=== PATIENT | female | born 1950 | race Caucasian/White ===

== ENCOUNTER 2016-12-20 17:58 | Emergency (ER) | payer OTHER ==
--- NOTE | 2016-12-20 20:10 | EDM.PDOC ---
ED HPI GENERAL MEDICAL PROBLEM - General Chief Complaint: General Stated Complaint: FALL/HEADACHES Time Seen by Provider: 12/20/16 20:06 - History of Present Illness INITIAL COMMENTS - FREE TEXT/NARRATIVE: HISTORY AND PHYSICAL: History of present illness: Patient 66-year-old white female with history of DVT/pulmonary embolism was on Etelvina Vega was multiple other medical problems including type 2 diabetes who presents with concern of headache she had a fall on December 09 had a workup done that includes x-ray and venous Doppler of her left lower extremity they were reportedly unremarkable she concern now regarding the headache. She had no nausea no vomiting no visual disturbances denies any other complaints. Review of systems: As per history of present illness and below otherwise all systems reviewed and negative. Past medical history: As per history of present illness and as reviewed below otherwise noncontributory. Surgical history: As per history of present illness and as reviewed below otherwise noncontributory. Social history: No reported history of drug or alcohol abuse. Family history: As per history of present illness and as reviewed below otherwise noncontributory. Physical exam: HEENT: Atraumatic, normocephalic, pupils reactive, negative for conjunctival pallor or scleral icterus, mucous membranes moist, throat clear, neck supple, nontender, trachea midline. Lungs: Clear to auscultation, breath sounds equal bilaterally, chest nontender. Heart: S1S2, regular, negative for clicks, rubs, or JVD. Abdomen: Soft, nondistended, nontender. Negative for masses or hepatosplenomegaly. Negative for costovertebral tenderness. Pelvis: Stable nontender. Genitourinary: Deferred. Rectal: Deferred. Extremities: Atraumatic, negative for cords or calf pain. Neurovascular unremarkable. Neuro: Awake, alert, oriented. Cranial nerves II through XII unremarkable. Cerebellum unremarkable. Motor and sensory unremarkable throughout. Exam nonfocal. Diagnostics: CT brain Therapeutics: None Impression: #1 cephalgia #2 history of fall December 09 #3 history of DVT pulmonary embolism Definitive disposition and diagnosis as appropriate pending reevaluation and review of above. Knee Pain Score (Numeric/FACES): 6 - Related Data Allergies Allergy/AdvReac Type Severity Reaction Status Date / Time adhesive Allergy Intermediate Rash Verified 12/20/16 18:41 brimonidine tartrate Allergy Intermediate Rash Verified 12/20/16 18:41 [From Alphagan P] clindamycin Allergy Intermediate Swelling Verified 12/20/16 18:41 duloxetine HCl Allergy Intermediate Shortness Verified 12/20/16 18:41 [From Cymbalta] of Breath chlorhexidine Allergy Mild Other Verified 12/20/16 18:41 methylprednisolone Allergy Mild Other Verified 12/20/16 18:41 tramadol HCl [From Ultracet] Allergy Mild Rash Verified 12/20/16 18:41 valdecoxib [From Bextra] Allergy Mild Rash Verified 12/20/16 18:41 acetaminophen [From Roxicet] Allergy Rash Verified 12/20/16 18:41 bupropion HCl Allergy Hallucinati Verified 12/20/16 18:41 [From Wellbutrin] ons canagliflozin [From Invokana] Allergy Rash Verified 03/07/15 21:54 cefadroxil hydrate Allergy Rash Verified 03/07/15 21:54 [From Ultracef] ciprofloxacin Allergy Rash Verified 12/20/16 18:41 foot deodorant combination Allergy Burning Verified 12/20/16 18:41 no.1 [From Desenex] gold sodium thiomalate Allergy Swelling Verified 12/20/16 18:41 lorazepam Allergy Hallucinati Verified 12/20/16 18:41 ons miconazole nitrate Allergy Burning Verified 12/20/16 18:41 [From Desenex] oxycodone [Oxycodone] Allergy Rash Verified 12/20/16 18:41 oxycodone HCl [From Roxicet] Allergy Rash Verified 12/20/16 18:41 Penicillins Allergy Rash Verified 12/20/16 18:41 pineapple Allergy Anaphylactic Verified 12/20/16 18:41 Shock povidone-iodine Allergy Rash Verified 12/20/16 18:41 [From Betadine] raspberry Allergy Swollen Verified 12/20/16 18:41 Tongue soap [From Betadine] Allergy Rash Verified 12/20/16 18:41 Sulfa (Sulfonamide Allergy Swelling Verified 12/20/16 18:41 Antibiotics) undecylenic acid Allergy Burning Verified 12/20/16 18:41 [From Desenex] zinc undecylenate Allergy Burning Verified 12/20/16 18:41 [From Desenex] latex AdvReac Severe Anaphylactic Verified 12/20/16 18:41 Shock clonazepam [From Klonopin] AdvReac Intermediate Hallucinati Verified 12/20/16 18 :41 ons pregabalin [From Lyrica] AdvReac Intermediate Hallucinati Verified 12/20/16 18: 41 ons gentamicin sulfate AdvReac Mild intolerance Verified 12/20/16 18:41 [From Garamycin] 2-Hydroxypropyl Methacrylate Allergy Burning Uncoded 12/20/16 18:41 bio-mesh screen Allergy Cannot Uncoded 12/20/16 18:41 Remember chlorhexidine gluconate swab Allergy Rash Uncoded 12/20/16 18:41 stick Clavilon Swab Stick Allergy Burning Uncoded 12/20/16 18:41 ethyleneglycol Dimethacrylate Allergy Swelling Uncoded 12/20/16 18:41 evergreen pollen Allergy Anaphylactic Uncoded 12/20/16 18:41 Shock geomycin Allergy Swelling Uncoded 12/20/16 18:41 java crown Allergy Other Uncoded 12/20/16 18:41 Muslin Allergy Rash Uncoded 12/20/16 18:41 potassium Dicyanoaurate Allergy Edema Uncoded 12/20/16 18:41 Home Meds: Home Meds EPINEPHrine [Adrenalin Chloride] 0.3 mg IM ASDIRECTED PRN 05/27/13 [History] Omeprazole 40 mg PO DAILY 05/27/13 [History] Latanoprost [Xalatan] 1 drop EYERT BEDTIME 03/07/15 [History] Loperamide [Imodium AD] 2 mg PO ONETIME 03/07/15 [History] Apixaban [Eliquis] 5 mg PO 12/20/16 [History] Budesonide [Pulmicort] 0.5 mg IH BID 12/20/16 [History] Gabapentin [Neurontin] 100 mg PO BID 12/20/16 [History] Liraglutide [Victoza] 0.6 mg SUBCUT DAILY 12/20/16 [History] atorvaSTATin [Lipitor] 40 mg PO BEDTIME 12/20/16 [History] Past Medical History Cardiovascular History: Reports: Afib, Blood Clots/VTE/DVT, Heart Murmur Other Cardiovascular History: AF in 2014 Respiratory History: Reports: Asthma, PE, Other (See Below) Other Respiratory History: Bronchitis. pneumonia Gastrointestinal History: Reports: Bowel Obstruction, Chronic Diarrhea, GERD, Other (See Below) Other Gastrointestinal History: explore laparatomy 2008. abdominal hernia Genitourinary History: Reports: Other (See Below) Other Genitourinary History: bladder/kidney/urine infections HAT MODEL History: Reports: , Other (See Below) Other OB/BYN History: ovarian cyst. molar Musculoskeletal History: Reports: Arthritis, Back Pain, Chronic, Osteoarthritis Psychiatric History: Reports: Anxiety, Depression Endocrine/Metabolic History: Reports: Diabetes, Type II Other Hematologic History: clotting disorder Oncologic (Cancer) History: Reports: Basal Cell Carcinoma Dermatologic History: Reports: Eczema, Psoriasis, Other (See Below) Other Dermatologic History: dermatitis. oral lichen planus - Infectious Disease History Infectious Disease History: Reports: Shingles - Past Surgical History HEENT Surgical History: Reports: Other (See Below) Female Surgical History: Reports: Hysterectomy, Other (See Below) Musculoskeletal Surgical History: Reports: Arthroscopic Procedure, Knee Replacement Oncologic Surgical History: Reports: Biopsy of Breast Dermatological Surgical History: Reports: Skin Biopsy Social & Family History - Tobacco Use Smoking Status *Q: Never Smoker Used Tobacco, but Quit: No Second Hand Smoke Exposure: No - Caffeine Use Caffeine Use: Reports: None - Alcohol Use Days Per Week of Alcohol Use: 0 - Recreational Drug Use Recreational Drug Use: No ED ROS GENERAL - Review of Systems Review Of Systems: ROS reveals no pertinent complaints other than HPI. ED EXAM, GENERAL - Physical Exam Exam: See Below (See dictation) Course - Vital Signs Last Recorded V/S: Last Vital Signs Temp 36.7 C 12/20/16 19:16 Pulse 84 12/20/16 22:00 Resp 18 12/20/16 22:00 BP 141/71 H 12/20/16 22:00 Pulse Ox 98 12/20/16 22:00 - Orders/Labs/Meds Orders: Active Orders 24 hr Category Date Time Status Head wo Cont [CT] Stat Exams 12/20/16 20:10 Taken Departure - Departure Time of Disposition: 23:02 Disposition: Home, Self-Care 01 Condition: Good Clinical Impression: Cephalgia - Discharge Information Instructions: Head Injury, Adult Referrals: Олег Gilbert MD [Primary Care Provider] - Forms: ED Department Discharge Additional Instructions: The following information is given to patients seen in the emergency department who are being discharged to home. This information is to outline your options for follow-up care. We provide all patients seen in our emergency department with a follow-up referral. The need for follow-up, as well as the timing and circumstances, are variable depending upon the specifics of your emergency department visit. If you don't have a primary care physician on staff, we will provide you with a referral. We always advise you to contact your personal physician following an emergency department visit to inform them of the circumstance of the visit and for follow-up with them and/or the need for any referrals to a consulting specialist. The emergency department will also refer you to a specialist when appropriate. This referral assures that you have the opportunity for followup care with a specialist. All of these measure are taken in an effort to provide you with optimal care, which includes your followup. Under all circumstances we always encourage you to contact your private physician who remains a resource for coordinating your care. When calling for followup care, please make the office aware that this follow-up is from your recent emergency room visit. If for any reason you are refused follow-up, please contact the [facility] emergency department at and asked to speak to the emergency department charge nurse. Follow-up Primary medical doctor 1-2 days return as needed as discussed] - My Orders Last 24 Hours: My Active Orders 12/20/16 20:10 Head wo Cont [CT] Stat - Assessment/Plan Last 24 Hours: My Active Orders 12/20/16 20:10 Head wo Cont [CT] Stat
[2016-12-20 22:16] VITALS: BP 141/71
--- NOTE | 2016-12-21 10:46 | CT ---
EXAM DATE: 12/20/16 PATIENT'S AGE: 66 Patient: SUHAIL HARDY Facility: [place], [place] Site . Site : 1950 Study: CT Head [id number] 8:43:35 PM Ordering Physician: Efrain Jones Final Report: INDICATION: WORSENING HEADACHES AND BLURRY VISION SINCE FALL 12/09/16 TECHNIQUE: CT Head without i.v. contrast. CONTRAST: None COMPARISON: None FINDINGS: CSF spaces: The ventricles are normal for age. Brain: No evidence of mass, acute infarction or hemorrhage is seen. No mass- effect or midline shift is seen. Moderate diffuse-confluent, low density is present within the periventricular white matter, likely due to microvascular ischemic changes. Calvarium: The visualized paranasal sinuses are well aerated. The mastoid air cells are clear. The visualized orbits are grossly unremarkable. The calvarium is unremarkable in appearance with no fractures identified. IMPRESSION: 1. No evidence of acute infarction, intracranial hemorrhage, or mass-effect seen. Dictated by Maverick Zamarripa MD @ 12/20/2016 9:10:35 PM Dictated by: Maverick Zamarripa MD @ 12/20/2016 21:10:42 (Electronic Signature) Report Signed by Proxy. ERI
== END 2016-12-20 22:01 | disposition home or self-care (01) ==
LOC: MW.ED 17:58
DX: R51 Headache (principal); Z86.711 Personal history of pulmonary embolism; Z88.8 Allergy status to other drugs, medicaments and biological substances
CPT/HCPCS: 70450; 70450-26; 99284; 99284-25

== ENCOUNTER 2017-01-31 12:24 | Emergency (ER) | payer OTHER ==
[2017-01-31] MEDS ORDERED: Sodium Chloride 0.9% 1,000 ML IV ONE (13:13)
[2017-01-31] MEDS ORDERED: Ondansetron 4 MG/2 ML SDV IVPUSH ONE (13:13)
--- NOTE | 2017-01-31 13:47 | EDM.PDOC ---
ED HPI GENERAL MEDICAL PROBLEM - General Chief Complaint: Gastrointestinal Problem Stated Complaint: DIARRHEA Time Seen by Provider: 01/31/17 13:12 Source of Information: Reports: Patient History Limitations: Reports: No Limitations - History of Present Illness INITIAL COMMENTS - FREE TEXT/NARRATIVE: HISTORY AND PHYSICAL: History of present illness: Patient is a 66-year-old female who presents to the emergency room with complaints of nausea and diarrhea since . States she has had diarrhea every hour for the past 5 days. The first 2 days she used Imodium frequently and did not get any relief so she stopped taking this medication. She constantly feels nauseated but has not vomited. She is able to eat and drink appropriately but feels that it "comes right out". Has subjective fever and chills (not check temperature at home). Generalized abdominal pain, which she attributes to all the diarrhea. Denies any blood in her stools. In his any recent travel or antibiotic use. Denies any chest pain or shortness of breath. Patient is a diabetic and has been checking her blood sugars routinely. She has been running in the 80s. Her primary care provider is Dr. Gilbert at [facility]. Has received the [id number] influenza vaccine Review of systems: As per history of present illness and below otherwise all systems reviewed and negative. Past medical history: As per history of present illness and as reviewed below otherwise noncontributory. Surgical history: As per history of present illness and as reviewed below otherwise noncontributory. Social history: No reported history of drug or alcohol abuse. Family history: As per history of present illness and as reviewed below otherwise noncontributory. Physical exam: Gen.: Well-developed and well-nourished 66-year-old female. Alert and oriented. Appears nontoxic and in no acute distress. HEENT: Atraumatic, normocephalic, pupils reactive, negative for conjunctival pallor or scleral icterus, mucous membranes moist, unable to visualize the tympanic membrane on the left due to cerumen, right TM normal , throat clear, neck supple, nontender, trachea midline. Lungs: Clear to auscultation, breath sounds equal bilaterally, chest nontender. Heart: S1S2, regular rate and rhythm count overt murmurs Abdomen: Soft, obese, nondistended, mild tenderness to the left and right upper quadrant. Negative for masses or hepatosplenomegaly. Negative for costovertebral tenderness. Pelvis: Stable nontender. Genitourinary: Deferred. Rectal: Deferred. Extremities: Atraumatic, negative for cords or calf pain. Neurovascular unremarkable. Neuro: Awake, alert, oriented. Cranial nerves II through XII unremarkable. Cerebellum unremarkable. Motor and sensory unremarkable throughout. Exam nonfocal. Labs are normal at this time. The only study back for the stool is [place] factor which is negative. CT of the abdomen shows mild diverticulosis without diverticulitis. We'll give the patient a prescription for Zofran 4 mg ODT. She may take 1 tab every 8 hours as needed for nausea, dispense 15 -no refills. Encouraged her to follow-up with her primary care provider in the next couple days if she continues to have diarrhea. She voices understanding and denies any further questions. Diagnostics: CBC, CMP, UA, stool culture Therapeutics: IV fluid, Zofran Impression: Diarrhea Viral illness Plan: 1. Zofran 4 mg ODT has been prescribed for you. You may take 1 tablet every 8 hours as needed for nausea. Make sure you are getting plenty of fluids to prevent dehydration. 2. If you continue to have symptoms please follow-up with your primary care provider in the next 1-2 days. The ED as needed and as discussed. Definitive disposition and diagnosis as appropriate pending reevaluation and review of above. Duration: Day(s): Location: Reports: Abdomen right lower abd Pain Score (Numeric/FACES): 7 - Related Data Allergies Allergy/AdvReac Type Severity Reaction Status Date / Time adhesive Allergy Intermediate Rash Verified 01/31/17 13:03 brimonidine tartrate Allergy Intermediate Rash Verified 01/31/17 13:03 [From Alphagan P] clindamycin Allergy Intermediate Swelling Verified 01/31/17 13:03 duloxetine HCl Allergy Intermediate Shortness Verified 01/31/17 13:03 [From Cymbalta] of Breath chlorhexidine Allergy Mild Other Verified 01/31/17 13:03 methylprednisolone Allergy Mild Other Verified 01/31/17 13:03 tramadol HCl [From Ultracet] Allergy Mild Rash Verified 01/31/17 13:03 valdecoxib [From Bextra] Allergy Mild Rash Verified 01/31/17 13:03 acetaminophen [From Roxicet] Allergy Rash Verified 01/31/17 13:03 bupropion HCl Allergy Hallucinati Verified 01/31/17 13:03 [From Wellbutrin] ons canagliflozin [From Invokana] Allergy Rash Verified 01/31/17 13:03 cefadroxil hydrate Allergy Rash Verified 01/31/17 13:03 [From Ultracef] ciprofloxacin Allergy Rash Verified 01/31/17 13:03 foot deodorant combination Allergy Burning Verified 01/31/17 13:03 no.1 [From Desenex] gold sodium thiomalate Allergy Swelling Verified 01/31/17 13:03 lorazepam Allergy Hallucinati Verified 01/31/17 13:03 ons miconazole nitrate Allergy Burning Verified 01/31/17 13:03 [From Desenex] oxycodone [Oxycodone] Allergy Rash Verified 01/31/17 13:03 oxycodone HCl [From Roxicet] Allergy Rash Verified 01/31/17 13:03 Penicillins Allergy Rash Verified 01/31/17 13:03 pineapple Allergy Anaphylactic Verified 01/31/17 13:03 Shock povidone-iodine Allergy Rash Verified 01/31/17 13:03 [From Betadine] raspberry Allergy Swollen Verified 01/31/17 13:03 Tongue soap [From Betadine] Allergy Rash Verified 01/31/17 13:03 Sulfa (Sulfonamide Allergy Swelling Verified 01/31/17 13:03 Antibiotics) undecylenic acid Allergy Burning Verified 01/31/17 13:03 [From Desenex] zinc undecylenate Allergy Burning Verified 01/31/17 13:03 [From Desenex] latex AdvReac Severe Anaphylactic Verified 01/31/17 13:03 Shock clonazepam [From Klonopin] AdvReac Intermediate Hallucinati Verified 01/31/17 13 :03 ons pregabalin [From Lyrica] AdvReac Intermediate Hallucinati Verified 01/31/17 13: 03 ons gentamicin sulfate AdvReac Mild intolerance Verified 01/31/17 13:03 [From Garamycin] 2-Hydroxypropyl Methacrylate Allergy Burning Uncoded 01/31/17 13:03 bio-mesh screen Allergy Cannot Uncoded 01/31/17 13:03 Remember chlorhexidine gluconate swab Allergy Rash Uncoded 01/31/17 13:03 stick Clavilon Swab Stick Allergy Burning Uncoded 01/31/17 13:03 ethyleneglycol Dimethacrylate Allergy Swelling Uncoded 01/31/17 13:03 evergreen pollen Allergy Anaphylactic Uncoded 01/31/17 13:03 Shock geomycin Allergy Swelling Uncoded 01/31/17 13:03 java crown Allergy Other Uncoded 01/31/17 13:03 [place] Allergy Rash Uncoded 01/31/17 13:03 potassium Dicyanoaurate Allergy Edema Uncoded 01/31/17 13:03 Home Meds: Home Meds EPINEPHrine [Adrenalin Chloride] 0.3 mg IM ASDIRECTED PRN 05/27/13 [History] Omeprazole 40 mg PO ACBREAKFAST 05/27/13 [History] Latanoprost [Xalatan] 1 drop EYERT BEDTIME 03/07/15 [History] Loperamide [Imodium AD] 2 mg PO TID PRN 03/07/15 [History] Apixaban [Eliquis] 5 mg PO DAILY 12/20/16 [History] Gabapentin [Neurontin] 200 mg PO 1400 12/20/16 [History] Liraglutide [Victoza] 1.8 mg SUBCUT DAILY@0700 12/20/16 [History] atorvaSTATin [Lipitor] 40 mg PO BEDTIME 12/20/16 [History] Acetaminophen [Tylenol Extra Strength] 500 mg PO Q8H PRN 01/31/17 [History] Colesevelam HCl [Welchol] 625 mg PO MOWEFR@1000 01/31/17 [History] Gabapentin [Neurontin] 300 mg PO 0625,1825 01/31/17 [History] hydrOXYzine Pamoate [Hydroxyzine Pamoate] 25 mg PO BID 01/31/17 [History] Past Medical History Cardiovascular History: Reports: Afib, Blood Clots/VTE/DVT, Heart Murmur Other Cardiovascular History: AF in 2013 Respiratory History: Reports: Asthma, PE, Other (See Below) Other Respiratory History: Bronchitis. pneumonia Gastrointestinal History: Reports: Bowel Obstruction, Chronic Diarrhea, GERD, Other (See Below) Other Gastrointestinal History: explore laparatomy 2007. abdominal hernia Genitourinary History: Reports: Other (See Below) Other Genitourinary History: bladder/kidney/urine infections PLUMBER AND TINNER History: Reports: , Other (See Below) Other OB/BYN History: ovarian cyst. molar Musculoskeletal History: Reports: Arthritis, Back Pain, Chronic, Osteoarthritis Psychiatric History: Reports: Anxiety, Depression Endocrine/Metabolic History: Reports: Diabetes, Type II Other Hematologic History: clotting disorder Oncologic (Cancer) History: Reports: Basal Cell Carcinoma Dermatologic History: Reports: Eczema, Psoriasis, Other (See Below) Other Dermatologic History: dermatitis. oral lichen planus - Infectious Disease History Infectious Disease History: Reports: Shingles - Past Surgical History Female Surgical History: Reports: Hysterectomy Musculoskeletal Surgical History: Reports: Arthroscopic Procedure, Knee Replacement Oncologic Surgical History: Reports: Biopsy of Breast Dermatological Surgical History: Reports: Skin Biopsy Social & Family History - Family History Family Medical History: Noncontributory - Tobacco Use Smoking Status *Q: Never Smoker Used Tobacco, but Quit: No Second Hand Smoke Exposure: No - Caffeine Use Caffeine Use: Reports: None - Alcohol Use Days Per Week of Alcohol Use: 0 - Recreational Drug Use Recreational Drug Use: No ED ROS GENERAL - Review of Systems Review Of Systems: ROS reveals no pertinent complaints other than HPI. ED EXAM, GI/ABD - Physical Exam Exam: See Below (See dictation) Course - Vital Signs Last Recorded V/S: Last Vital Signs Temp 97.8 F 01/31/17 13:03 Pulse 92 01/31/17 13:03 Resp 18 01/31/17 13:03 BP 148/76 H 01/31/17 13:03 Pulse Ox 99 01/31/17 13:03 - Orders/Labs/Meds Orders: Active Orders 24 hr Category Date Time Status CULTURE STOOL + CAMPY+SHIGATOX [RM] Stat Lab 01/31/17 14:06 Results Labs: Laboratory Tests 01/31/17 01/31/17 01/31/17 Range/Units 13:07 13:41 13:41 WBC 6.20 (4.0-11.0) K/uL RBC 4.73 (4.30-5.90) M/uL Hgb 14.2 (12.0-16.0) g/dL Hct 43.3 (36.0-46.0) % MCV 91.5 (80.0-98.0) fL MCH 30.0 (27.0-32.0) pg MCHC 32.8 (31.0-37.0) g/dL RDW Std Deviation 47.5 (28.0-62.0) fl RDW Coeff of Tisha 14 (11.0-15.0) % Plt Count 126 L (150-400) K/uL MPV 10.00 (7.40-12.00) fL Neut % (Auto) 61.7 (48.0-80.0) % Lymph % (Auto) 28.4 (16.0-40.0) % [place] % (Auto) 8.1 (0.0-15.0) % Eos % (Auto) 1.5 (0.0-7.0) % Baso % (Auto) 0.3 (0.0-1.5) % Neut # (Auto) 3.8 (1.4-5.7) K/uL Lymph # (Auto) 1.8 (0.6-2.4) K/uL [place] # (Auto) 0.5 (0.0-0.8) K/uL Eos # (Auto) 0.1 (0.0-0.7) K/uL Baso # (Auto) 0.0 (0.0-0.1) K/uL Nucleated RBC % 0.0 /100WBC Nucleated RBCs # 0 K/uL Sodium 143 (136-146) mmol/L Potassium 3.9 (3.5-5.1) mmol/L Chloride 107 (98-110) mmol/L Carbon Dioxide 25 (21-31) mmol/L BUN 9 (6.0-23.0) mg/dL Creatinine 0.8 (0.6-1.5) mg/dL Est Cr Clr Drug Dosing 66.51 mL/min Estimated GFR (MDRD) > 60.0 ml/min Glucose 91 (60-110) mg/dL POC Glucose 89 (60-110) mg/dL Calcium 9.6 (8.8-10.8) mg/dL Total Bilirubin 0.8 (0.1-1.5) mg/dL AST 23 (5-40) IU/L ALT 26 (8-54) IU/L Alkaline Phosphatase 86 (40-150) Total Protein 7.5 (6.0-8.0) g/dL Albumin 4.2 (3.4-4.8) g/dL Globulin 3.3 (2.0-3.5) g/dL Albumin/Globulin Ratio 1.3 (1.3-2.8) Urine Color Urine Appearance Urine pH (5.0-8.0) Ur Specific [place] (1.001-1.035) Urine Protein (NEGATIVE) mg/dL Urine Glucose (UA) (NEGATIVE) mg/dL Urine Ketones (NEGATIVE) mg/dL Urine Occult Blood (NEGATIVE) Urine Nitrite (NEGATIVE) Urine Bilirubin (NEGATIVE) Urine Urobilinogen (<2.0) EU/dL Ur Leukocyte Esterase (NEGATIVE) Urine RBC (0-2/HPF) Urine WBC (0-5/HPF) Ur Epithelial Cells (NONE-FEW) Urine Bacteria (NEGATIVE) 01/31/17 Range/Units 16:20 WBC (4.0-11.0) K/uL RBC (4.30-5.90) M/uL Hgb (12.0-16.0) g/dL Hct (36.0-46.0) % MCV (80.0-98.0) fL MCH (27.0-32.0) pg MCHC (31.0-37.0) g/dL RDW Std Deviation (28.0-62.0) fl RDW Coeff of Tisha (11.0-15.0) % Plt Count (150-400) K/uL MPV (7.40-12.00) fL Neut % (Auto) (48.0-80.0) % Lymph % (Auto) (16.0-40.0) % [place] % (Auto) (0.0-15.0) % Eos % (Auto) (0.0-7.0) % Baso % (Auto) (0.0-1.5) % Neut # (Auto) (1.4-5.7) K/uL Lymph # (Auto) (0.6-2.4) K/uL [place] # (Auto) (0.0-0.8) K/uL Eos # (Auto) (0.0-0.7) K/uL Baso # (Auto) (0.0-0.1) K/uL Nucleated RBC % /100WBC Nucleated RBCs # K/uL Sodium (136-146) mmol/L Potassium (3.5-5.1) mmol/L Chloride (98-110) mmol/L Carbon Dioxide (21-31) mmol/L BUN (6.0-23.0) mg/dL Creatinine (0.6-1.5) mg/dL Est Cr Clr Drug Dosing mL/min Estimated GFR (MDRD) ml/min Glucose (60-110) mg/dL POC Glucose (60-110) mg/dL Calcium (8.8-10.8) mg/dL Total Bilirubin (0.1-1.5) mg/dL AST (5-40) IU/L ALT (8-54) IU/L Alkaline Phosphatase (40-150) Total Protein (6.0-8.0) g/dL Albumin (3.4-4.8) g/dL Globulin (2.0-3.5) g/dL Albumin/Globulin Ratio (1.3-2.8) Urine Color YELLOW Urine Appearance CLEAR Urine pH 5.0 (5.0-8.0) Ur Specific [place] <= 1.005 (1.001-1.035) Urine Protein NEGATIVE (NEGATIVE) mg/dL Urine Glucose (UA) NEGATIVE (NEGATIVE) mg/dL Urine Ketones 15 H (NEGATIVE) mg/dL Urine Occult Blood TRACE-INTACT (NEGATIVE) Urine Nitrite NEGATIVE (NEGATIVE) Urine Bilirubin NEGATIVE (NEGATIVE) Urine Urobilinogen 0.2 (<2.0) EU/dL Ur Leukocyte Esterase NEGATIVE (NEGATIVE) Urine RBC 1-2 (0-2/HPF) Urine WBC 0-1 (0-5/HPF) Ur Epithelial Cells RARE (NONE-FEW) Urine Bacteria RARE (NEGATIVE) Meds: Medications Discontinued Medications Generic Name Dose Route Start Last Admin Trade Name Freq PRN Reason Stop Dose Admin Sodium Chloride 1,000 mls @ 999 mls/hr 01/31/17 13:13 01/31/17 14:59 Normal Saline IV 01/31/17 14:13 999 mls/hr STAT ONE Administration Ondansetron HCl 4 mg 01/31/17 13:13 01/31/17 15:00 Zofran IVPUSH 01/31/17 13:14 4 mg ONETIME ONE Administration Departure - Departure Time of Disposition: 17:33 Disposition: Home, Self-Care 01 Clinical Impression: Viral illness Diarrhea Qualifiers: Diarrhea type: unspecified type Qualified Code(s): R19.7 - Diarrhea, unspecified - Discharge Information Referrals: PCP,None [Primary Care Provider] - Forms: ED Department Discharge Additional Instructions: My general discharge The following information is given to patients seen in the emergency department who are being discharged to home. This information is to outline your options for follow-up care. We provide all patients seen in our emergency department with a follow-up referral. The need for follow-up, as well as the timing and circumstances, are variable depending upon the specifics of your emergency department visit. If you don't have a primary care physician on staff, we will provide you with a referral. We always advise you to contact your personal physician following an emergency department visit to inform them of the circumstance of the visit and for follow-up with them and/or the need for any referrals to a consulting specialist. The emergency department will also refer you to a specialist when appropriate. This referral assures that you have the opportunity for follow-up care with a specialist. All of these measure are taken in an effort to provide you with optimal care, which includes your follow-up. Under all circumstances we always encourage you to contact your private physician who remains a resource for coordinating your care. When calling for follow-up care, please make the office aware that this follow-up is from your recent emergency room visit. If for any reason you are refused follow-up, please contact the [facility] Emergency Department at and asked to speak to the emergency department charge nurse. [facility] [address] [place] [id number] 1. Zofran 4 mg ODT has been prescribed for you. You may take 1 tablet every 8 hours as needed for nausea. Make sure you are getting plenty of fluids to prevent dehydration. 2. If you continue to have symptoms please follow-up with your primary care provider in the next 1-2 days. The ED as needed and as discussed. - My Orders Last 24 Hours: My Active Orders 01/31/17 14:06 CULTURE STOOL + CAMPY+SHIGATOX [RM] Stat - Assessment/Plan Last 24 Hours: My Active Orders 01/31/17 14:06 CULTURE STOOL + CAMPY+SHIGATOX [RM] Stat
[2017-01-31 14:20] LABS: CHLORIDE,CL 107 mmol/L (98-110); SODIUM,NA 143 mmol/L (136-146)
--- NOTE | 2017-01-31 16:29 | CT ---
CT of the abdomen and pelvis with contrast. HISTORY: Pain TECHNIQUE: Axial CT images were obtained of the abdomen and pelvis following administration of Isovue -370 without complication. Coronal and sagittal reconstructions obtained. FINDINGS: The lung bases are clear, no pleural effusion. The liver, spleen, adrenal glands and pancreas appear grossly normal. Cholecystectomy. No bulky retro peritoneal lymphadenopathy or abdominal ascites. The kidneys enhance and function symmetrically without evidence of obstructive uropathy. Likely a sma ll cyst within the upper pole of the right kidney. The large and small bowel appear normal in caliber without evidence of obstruction. No focal pericolo wes inflammation. Minimal diverticulosis without evidence of diverticulitis. The anastomosis changes noted within the mid small bowel. Appendectomy. Urinary bladder appears normal. No bulky pelvic lymph adenopathy or free pelvic fluid. S-shaped curvature of the thoracolumbar spine. No suspicious osseous abnormalities. IMPRESSION: 1. No acute findings within the abdomen or pelvis. 2. Minimal diverticulosis without evidence of diverticulitis.
[2017-01-31 18:29] VITALS: BP 138/74
== END 2017-01-31 17:45 | disposition home or self-care (01) ==
LOC: MW.ED 12:24
DX: B34.9 Viral infection, unspecified (principal); E11.9 Type 2 diabetes mellitus without complications; Z88.1 Allergy status to other antibiotic agents; Z88.5 Allergy status to narcotic agent; Z88.8 Allergy status to other drugs, medicaments and biological substances; Z88.0 Allergy status to penicillin; Z88.2 Allergy status to sulfonamides; Z91.040 Latex allergy status; Z79.899 Other long term (current) drug therapy
CPT/HCPCS: 36415; 74177; 80053; 81001; 82962; 85025; 87046; 96361; 96374; 99284; J2405; J7040; 87899

== ENCOUNTER 2017-02-04 11:20 | Observation (INO) | payer OTHER ==
[2017-02-04] MEDS ORDERED: Ondansetron 4 MG/2 ML SDV IVPUSH ONE (11:35)
--- NOTE | 2017-02-04 11:40 | EDM.PDOC ---
ED HPI GENERAL MEDICAL PROBLEM - General Chief Complaint: Gastrointestinal Problem Stated Complaint: DEHYRADTED Time Seen by Provider: 02/04/17 11:34 Source of Information: Reports: Patient History Limitations: Reports: No Limitations - History of Present Illness INITIAL COMMENTS - FREE TEXT/NARRATIVE: HISTORY AND PHYSICAL: History of present illness: Patient is a 66-year-old female who presents to the emergency room today with complaints of dizziness, nausea, vomiting, diarrhea and generalized abdominal pain times one and half weeks. Patient was evaluated on 01/31/2017 for the same symptoms and did have lab work, stool study and CT of the abdomen and pelvis at that time. She was diagnosed with viral gastroenteritis and was given a prescription for Zofran. She saw Dr. Serrato 2 days ago who did a repeat stool study and suggested to use Benefiber, Imodium and Y Gabe. She has been doing these things since that time. She states that her symptoms somewhat improved, has not had a bowel movement since 5:30 PM last night. But now is complaining of dizziness and weakness. Today she called her primary care provider Dr. Palomo, who suggested she come in for IV fluids. Currently she states that her nausea and vomiting are minimal. Denies any chest pain, shortness of breath, cough. Review of systems: As per history of present illness and below otherwise all systems reviewed and negative. Past medical history: As per history of present illness and as reviewed below otherwise noncontributory. Surgical history: As per history of present illness and as reviewed below otherwise noncontributory. Social history: No reported history of drug or alcohol abuse. Family history: As per history of present illness and as reviewed below otherwise noncontributory. Physical exam: General: Well-developed and well-nourished 66-year-old female. Alert and oriented. Appears nontoxic and in no HEENT: Atraumatic, normocephalic, pupils reactive, negative for conjunctival pallor or scleral icterus, mucous membranes moist, throat clear, neck supple, nontender, trachea midline. Lungs: Clear to auscultation, breath sounds equal bilaterally, chest nontender. Heart: S1S2, regular, negative for clicks, rubs, or JVD. Abdomen: Soft, obese, nondistended, nontender. Negative for masses or hepatosplenomegaly. Negative for costovertebral tenderness. Pelvis: Stable nontender. Genitourinary: Deferred. Rectal: Deferred. Extremities: Atraumatic, negative for cords or calf pain. Neurovascular unremarkable. Neuro: Awake, alert, oriented. Cranial nerves II through XII unremarkable. Cerebellum unremarkable. Motor and sensory unremarkable throughout. Exam nonfocal. Stool that was done on 01/31/2017 was negative for Escherichia coli, salmonella , Shigella, Campylobacter. Orthostatic vital signs that were done were negative. Patient will be observation on [facility] per Dr. Perdue Diagnostics: CBC, CMP, UA, EKG Therapeutics: IV fluid, meclizine and Zofran PRN Impression: Dizziness Plan: Observation admission to [facility] per Dr. Perdue Definitive disposition and diagnosis as appropriate pending reevaluation and review of above. Duration: Week(s): Location: Reports: Abdomen abdominal Pain Score (Numeric/FACES): 6 - Related Data Allergies Allergy/AdvReac Type Severity Reaction Status Date / Time adhesive Allergy Intermediate Rash Verified 02/04/17 11:25 brimonidine tartrate Allergy Intermediate Rash Verified 02/04/17 11:25 [From Alphagan P] clindamycin Allergy Intermediate Swelling Verified 02/04/17 11:25 duloxetine HCl Allergy Intermediate Shortness Verified 02/04/17 11:25 [From Cymbalta] of Breath chlorhexidine Allergy Mild Other Verified 02/04/17 11:25 methylprednisolone Allergy Mild Other Verified 02/04/17 11:25 tramadol HCl [From Ultracet] Allergy Mild Rash Verified 02/04/17 11:25 valdecoxib [From Bextra] Allergy Mild Rash Verified 02/04/17 11:25 acetaminophen [From Roxicet] Allergy Rash Verified 02/04/17 11:25 bupropion HCl Allergy Hallucinati Verified 02/04/17 11:25 [From Wellbutrin] ons canagliflozin [From Invokana] Allergy Rash Verified 02/04/17 11:25 cefadroxil hydrate Allergy Rash Verified 02/04/17 11:25 [From Ultracef] ciprofloxacin Allergy Rash Verified 02/04/17 11:25 foot deodorant combination Allergy Burning Verified 02/04/17 11:25 no.1 [From Desenex] gold sodium thiomalate Allergy Swelling Verified 02/04/17 11:25 lorazepam Allergy Hallucinati Verified 02/04/17 11:25 ons miconazole nitrate Allergy Burning Verified 02/04/17 11:25 [From Desenex] oxycodone [Oxycodone] Allergy Rash Verified 02/04/17 11:25 oxycodone HCl [From Roxicet] Allergy Rash Verified 02/04/17 11:25 Penicillins Allergy Rash Verified 02/04/17 11:25 pineapple Allergy Anaphylactic Verified 02/04/17 11:25 Shock povidone-iodine Allergy Rash Verified 02/04/17 11:25 [From Betadine] raspberry Allergy Swollen Verified 02/04/17 11:25 Tongue soap [From Betadine] Allergy Rash Verified 02/04/17 11:25 Sulfa (Sulfonamide Allergy Swelling Verified 02/04/17 11:25 Antibiotics) undecylenic acid Allergy Burning Verified 02/04/17 11:25 [From Desenex] zinc undecylenate Allergy Burning Verified 02/04/17 11:25 [From Desenex] latex AdvReac Severe Anaphylactic Verified 02/04/17 11:25 Shock clonazepam [From Klonopin] AdvReac Intermediate Hallucinati Verified 02/04/17 11 :25 ons pregabalin [From Lyrica] AdvReac Intermediate Hallucinati Verified 02/04/17 11: 25 ons gentamicin sulfate AdvReac Mild intolerance Verified 02/04/17 11:25 [From Garamycin] 2-Hydroxypropyl Methacrylate Allergy Burning Uncoded 02/04/17 11:25 bio-mesh screen Allergy Cannot Uncoded 02/04/17 11:25 Remember chlorhexidine gluconate swab Allergy Rash Uncoded 02/04/17 11:25 stick Clavilon Swab Stick Allergy Burning Uncoded 02/04/17 11:25 ethyleneglycol Dimethacrylate Allergy Swelling Uncoded 02/04/17 11:25 evergreen pollen Allergy Anaphylactic Uncoded 02/04/17 11:25 Shock geomycin Allergy Swelling Uncoded 02/04/17 11:25 java crown Allergy Other Uncoded 02/04/17 11:25 [place] Allergy Rash Uncoded 02/04/17 11:25 potassium Dicyanoaurate Allergy Edema Uncoded 02/04/17 11:25 Home Meds: Home Meds EPINEPHrine [Adrenalin Chloride] 0.3 mg IM ASDIRECTED PRN 05/27/13 [History] Omeprazole 40 mg PO ACBREAKFAST 05/27/13 [History] Latanoprost [Xalatan] 1 drop EYERT BEDTIME 03/07/15 [History] Loperamide [Imodium AD] 2 mg PO TID PRN 03/07/15 [History] Apixaban [Eliquis] 5 mg PO DAILY 12/20/16 [History] Gabapentin [Neurontin] 200 mg PO 1400 12/20/16 [History] Liraglutide [Victoza] 1.8 mg SUBCUT DAILY@0700 12/20/16 [History] atorvaSTATin [Lipitor] 40 mg PO BEDTIME 12/20/16 [History] Acetaminophen [Tylenol Extra Strength] 500 mg PO Q8H PRN 01/31/17 [History] Colesevelam HCl [Welchol] 625 mg PO MOWEFR@1000 01/31/17 [History] Gabapentin [Neurontin] 300 mg PO 0625,1825 01/31/17 [History] hydrOXYzine Pamoate [Hydroxyzine Pamoate] 25 mg PO BID 01/31/17 [History] Past Medical History HEENT History: Reports: None Cardiovascular History: Reports: Afib, Blood Clots/VTE/DVT, Heart Murmur Other Cardiovascular History: AF in 2013 Respiratory History: Reports: Asthma, PE, Other (See Below) Other Respiratory History: Bronchitis. pneumonia Gastrointestinal History: Reports: Bowel Obstruction, Chronic Diarrhea, GERD, Other (See Below) Other Gastrointestinal History: explore laparatomy 2007. 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 molar Musculoskeletal History: Reports: Arthritis, Back Pain, Chronic, Osteoarthritis Neurological History: Reports: None Psychiatric History: Reports: Anxiety, Depression Endocrine/Metabolic History: Reports: Diabetes, Type II Hematologic History: Reports: Other (See Below) Other Hematologic History: clotting disorder Immunologic History: Reports: None Oncologic (Cancer) History: Reports: Basal Cell Carcinoma Dermatologic History: Reports: Eczema, Psoriasis, Other (See Below) Other Dermatologic History: dermatitis. oral lichen planus - Infectious Disease History Infectious Disease History: Reports: Shingles - Past Surgical History Head Surgeries/Procedures: Reports: None HEENT Surgical History: Reports: Other (See Below) Cardiovascular Surgical History: Reports: None Respiratory Surgical History: Reports: None GI Surgical History: Reports: None Female Surgical History: Reports: Hysterectomy Endocrine Surgical History: Reports: None Neurological Surgical History: Reports: None Musculoskeletal Surgical History: Reports: Arthroscopic Procedure, Knee Replacement Oncologic Surgical History: Reports: Biopsy of Breast Dermatological Surgical History: Reports: Skin Biopsy Social & Family History - Family History Family Medical History: Noncontributory - Tobacco Use Smoking Status *Q: Never Smoker Used Tobacco, but Quit: No Second Hand Smoke Exposure: No - Caffeine Use Caffeine Use: Reports: None - Alcohol Use Days Per Week of Alcohol Use: 0 - Recreational Drug Use Recreational Drug Use: No ED ROS GENERAL - Review of Systems Review Of Systems: ROS reveals no pertinent complaints other than HPI. ED EXAM, GI/ABD - Physical Exam Exam: See Below (See dictation) Course - Vital Signs Last Recorded V/S: Last Vital Signs Temp 95.6 F 02/04/17 11:26 Pulse 86 02/04/17 11:26 Resp 18 02/04/17 11:26 BP 151/75 H 02/04/17 11:26 Pulse Ox 96 02/04/17 11:26 Orthostatic Blood Pressure [ 119/69 Standing] Orthostatic Blood Pressure [ 116/60 Sitting] Orthostatic Blood Pressure [ 139/70 Supine] - Orders/Labs/Meds Orders: Active Orders 24 hr Category Date Time Status EKG Documentation Completion [RC] STAT Care 02/04/17 11:45 Active Orthostatic Vital Signs [RC] ASDIRECTED Care 02/04/17 11:46 Active UA W/MICROSCOPIC [URIN] Stat Lab 02/04/17 11:49 Uncollected Sodium Chloride 0.9% [Normal Saline] 1,000 ml Med 02/04/17 11:45 Active IV ASDIRECTED Medication Orders Sodium Chloride (Normal Saline) 1,000 mls @ 999 mls/hr IV ASDIRECTED [facility] Last Admin: 02/04/17 11:48 Dose: 999 mls/hr Labs: Laboratory Tests 02/04/17 02/04/17 02/04/17 Range/Units 11:33 11:33 11:33 WBC 6.29 (4.0-11.0) K/uL RBC 4.54 (4.30-5.90) M/uL Hgb 13.6 (12.0-16.0) g/dL Hct 41.3 (36.0-46.0) % MCV 91.0 (80.0-98.0) fL MCH 30.0 (27.0-32.0) pg MCHC 32.9 (31.0-37.0) g/dL RDW Std Deviation 47.4 (28.0-62.0) fl RDW Coeff of Tisha 15 (11.0-15.0) % Plt Count 140 L (150-400) K/uL MPV 10.90 (7.40-12.00) fL Neut % (Auto) 54.4 (48.0-80.0) % Lymph % (Auto) 36.1 (16.0-40.0) % [place] % (Auto) 7.6 (0.0-15.0) % Eos % (Auto) 1.6 (0.0-7.0) % Baso % (Auto) 0.3 (0.0-1.5) % Neut # (Auto) 3.4 (1.4-5.7) K/uL Lymph # (Auto) 2.3 (0.6-2.4) K/uL [place] # (Auto) 0.5 (0.0-0.8) K/uL Eos # (Auto) 0.1 (0.0-0.7) K/uL Baso # (Auto) 0.0 (0.0-0.1) K/uL Nucleated RBC % 0.0 /100WBC Nucleated RBCs # 0 K/uL Sodium 144 (136-146) mmol/L Potassium 3.8 (3.5-5.1) mmol/L Chloride 109 (98-110) mmol/L Carbon Dioxide 25 (21-31) mmol/L BUN 5 L (6.0-23.0) mg/dL Creatinine 0.8 (0.6-1.5) mg/dL Est Cr Clr Drug Dosing 66.51 mL/min Estimated GFR (MDRD) > 60.0 ml/min Glucose 99 (60-110) mg/dL Calcium 9.7 (8.8-10.8) mg/dL Total Bilirubin 0.9 (0.1-1.5) mg/dL AST 30 (5-40) IU/L ALT 34 (8-54) IU/L Alkaline Phosphatase 83 (40-150) Troponin I < 0.10 (0.0-0.29) NG/ML Total Protein 7.4 (6.0-8.0) g/dL Albumin 4.3 (3.4-4.8) g/dL Globulin 3.1 (2.0-3.5) g/dL Albumin/Globulin Ratio 1.4 (1.3-2.8) Meds: Medications Generic Name Dose Route Start Last Admin Trade Name Freq PRN Reason Stop Dose Admin Sodium Chloride 1,000 mls @ 999 mls/hr 02/04/17 11:45 02/04/17 11:48 Normal Saline IV 999 mls/hr ASDIRECTED [facility] Administration Discontinued Medications Generic Name Dose Route Start Last Admin Trade Name Freq PRN Reason Stop Dose Admin Meclizine HCl 25 mg 02/04/17 11:45 02/04/17 11:49 Antivert PO 02/04/17 11:46 25 mg ONETIME ONE Administration Ondansetron HCl 4 mg 02/04/17 11:35 02/04/17 11:52 Zofran IVPUSH 02/04/17 11:36 Not Given ONETIME ONE Departure - Departure Time of Disposition: 13:16 Disposition: Refer to Observation Clinical Impression: Dizziness - Discharge Information Referrals: Олег Gilbert MD [Primary Care Provider] - Forms: ED Department Discharge - My Orders Last 24 Hours: My Active Orders 02/04/17 11:45 EKG Documentation Completion [RC] STAT Sodium Chloride 0.9% [Normal Saline] 1,000 ml IV ASDIRECTED 02/04/17 11:46 Orthostatic Vital Signs [RC] ASDIRECTED 02/04/17 11:49 UA W/MICROSCOPIC [URIN] Stat - Assessment/Plan Last 24 Hours: My Active Orders 02/04/17 11:45 EKG Documentation Completion [RC] STAT Sodium Chloride 0.9% [Normal Saline] 1,000 ml IV ASDIRECTED 02/04/17 11:46 Orthostatic Vital Signs [RC] ASDIRECTED 02/04/17 11:49 UA W/MICROSCOPIC [URIN] Stat
[2017-02-04] MEDS ORDERED: Sodium Chloride 0.9% 1,000 ML IV SCH (11:45)
[2017-02-04] MEDS ORDERED: Meclizine 25 MG Tab PO ONE (11:45)
[2017-02-04 12:26] LABS: CHLORIDE,CL 109 mmol/L (98-110); SODIUM,NA 144 mmol/L (136-146)
--- NOTE | 2017-02-04 15:51 | PCM.HP ---
H&P History of Present Illness - General Date of Service: 02/04/17 Admit Problem/Dx: Admission Diagnosis/Problem Admission Diagnosis/Problem Dizziness - History of Present Illness Initial Comments - Free Text/Narative: History of present illness: 66 yo female with history of DVT, DM T2, CAD, Chronic Pain syndrome, Depression and Anxiety is admitted for dizziness and weakness likely secondary to dehydration. She has been experiencing nausea, vomiting, diarrhea and abdominal pain for the past 1-2 weeks. She saw her PCP Dr. Gilbert on 01/31/17 and was diagnosed with Viral Gastroenteritis after negative labs, negative stool studies and negative ct abdomen-pelvis. She was given IVF bolus and prescribed Zofran for nausea. Her symptoms persisted so she went back to [facility] 2 days ago and saw Dr. Serrato who recommended using Benefiber and Imodium. He also gave 1 bolus of IVF which improved her symptoms. Patient states today that her diarrhea was continuous occurring over 6-8x per day but that resolved yesterday evening and she has not had any recurrence of it today. She still has some mild nausea but her vomiting has resolved as well. She just describes generalized weakness and dizziness and feel like she will fall if she walks. Patient also states that she has an active blood clot in her right femoral vein and that was found in April 2016 at [facility] and she is currently on Eliquis for that. ED Course -stable vital signs including orthostatic -diagnostics: CBC, CMP, UA, EKG -therapeutics:IV fluid, meclizine and Zofran PRN abdominal Pain Score (Numeric/FACES): 6 - Related Data Allergies/Adverse Reactions: Allergies Allergy/AdvReac Type Severity Reaction Status Date / Time adhesive Allergy Intermediate Rash Verified 02/04/17 11:25 brimonidine tartrate Allergy Intermediate Rash Verified 02/04/17 11:25 [From Alphagan P] clindamycin Allergy Intermediate Swelling Verified 02/04/17 11:25 duloxetine HCl Allergy Intermediate Shortness Verified 02/04/17 11:25 [From Cymbalta] of Breath chlorhexidine Allergy Mild Other Verified 02/04/17 11:25 methylprednisolone Allergy Mild Other Verified 02/04/17 11:25 tramadol HCl [From Ultracet] Allergy Mild Rash Verified 02/04/17 11:25 valdecoxib [From Bextra] Allergy Mild Rash Verified 02/04/17 11:25 acetaminophen [From Roxicet] Allergy Rash Verified 02/04/17 11:25 bupropion HCl Allergy Hallucinati Verified 02/04/17 11:25 [From Wellbutrin] ons canagliflozin [From Invokana] Allergy Rash Verified 02/04/17 11:25 cefadroxil hydrate Allergy Rash Verified 02/04/17 11:25 [From Ultracef] ciprofloxacin Allergy Rash Verified 02/04/17 11:25 foot deodorant combination Allergy Burning Verified 02/04/17 11:25 no.1 [From Desenex] gold sodium thiomalate Allergy Swelling Verified 02/04/17 11:25 lorazepam Allergy Hallucinati Verified 02/04/17 11:25 ons miconazole nitrate Allergy Burning Verified 02/04/17 11:25 [From Desenex] oxycodone [Oxycodone] Allergy Rash Verified 02/04/17 11:25 oxycodone HCl [From Roxicet] Allergy Rash Verified 02/04/17 11:25 Penicillins Allergy Rash Verified 02/04/17 11:25 pineapple Allergy Anaphylactic Verified 02/04/17 11:25 Shock povidone-iodine Allergy Rash Verified 02/04/17 11:25 [From Betadine] raspberry Allergy Swollen Verified 02/04/17 11:25 Tongue soap [From Betadine] Allergy Rash Verified 02/04/17 11:25 Sulfa (Sulfonamide Allergy Swelling Verified 02/04/17 11:25 Antibiotics) undecylenic acid Allergy Burning Verified 02/04/17 11:25 [From Desenex] zinc undecylenate Allergy Burning Verified 02/04/17 11:25 [From Desenex] latex AdvReac Severe Anaphylactic Verified 02/04/17 11:25 Shock clonazepam [From Klonopin] AdvReac Intermediate Hallucinati Verified 02/04/17 11 :25 ons pregabalin [From Lyrica] AdvReac Intermediate Hallucinati Verified 02/04/17 11: 25 ons gentamicin sulfate AdvReac Mild intolerance Verified 02/04/17 11:25 [From Garamycin] 2-Hydroxypropyl Methacrylate Allergy Burning Uncoded 02/04/17 11:25 bio-mesh screen Allergy Cannot Uncoded 02/04/17 11:25 Remember chlorhexidine gluconate swab Allergy Rash Uncoded 02/04/17 11:25 stick Clavilon Swab Stick Allergy Burning Uncoded 02/04/17 11:25 ethyleneglycol Dimethacrylate Allergy Swelling Uncoded 02/04/17 11:25 evergreen pollen Allergy Anaphylactic Uncoded 02/04/17 11:25 Shock geomycin Allergy Swelling Uncoded 02/04/17 11:25 java crown Allergy Other Uncoded 02/04/17 11:25 [place] Allergy Rash Uncoded 02/04/17 11:25 potassium Dicyanoaurate Allergy Edema Uncoded 02/04/17 11:25 Home Medications: Home Meds EPINEPHrine [Adrenalin Chloride] 0.3 mg IM ASDIRECTED PRN 05/27/13 [History] Omeprazole 40 mg PO ACBREAKFAST 05/27/13 [History] Latanoprost [Xalatan] 1 drop EYERT BEDTIME 03/07/15 [History] Loperamide [Imodium AD] 2 mg PO TID PRN 03/07/15 [History] Apixaban [Eliquis] 5 mg PO 0630,1830 12/20/16 [History] Gabapentin [Neurontin] 200 mg PO 1400 12/20/16 [History] Liraglutide [Victoza] 1.8 mg SUBCUT DAILY@0700 12/20/16 [History] atorvaSTATin [Lipitor] 40 mg PO BEDTIME 12/20/16 [History] Acetaminophen [Tylenol Extra Strength] 500 mg PO Q8H PRN 01/31/17 [History] Colesevelam HCl [Welchol] 625 mg PO MOWEFR@1000 01/31/17 [History] Gabapentin [Neurontin] 300 mg PO 0625,1825 01/31/17 [History] hydrOXYzine Pamoate [Hydroxyzine Pamoate] 25 mg PO BID 01/31/17 [History] Past Medical History HEENT History: Reports: None Cardiovascular History: Reports: Afib, Blood Clots/VTE/DVT, Heart Murmur Other Cardiovascular History: AF in 2013 Respiratory History: Reports: Asthma, PE, Other (See Below) Other Respiratory History: Bronchitis. pneumonia Gastrointestinal History: Reports: Bowel Obstruction, Chronic Diarrhea, GERD, Other (See Below) Other Gastrointestinal History: explore laparatomy 2007. 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 molar Musculoskeletal History: Reports: Arthritis, Back Pain, Chronic, Osteoarthritis Neurological History: Reports: None Psychiatric History: Reports: Anxiety, Depression Endocrine/Metabolic History: Reports: Diabetes, Type II Hematologic History: Reports: Other (See Below) Other Hematologic History: clotting disorder Immunologic History: Reports: None Oncologic (Cancer) History: Reports: Basal Cell Carcinoma Dermatologic History: Reports: Eczema, Psoriasis, Other (See Below) Other Dermatologic History: dermatitis. oral lichen planus - Infectious Disease History Infectious Disease History: Reports: Shingles - Past Surgical History Head Surgeries/Procedures: Reports: None HEENT Surgical History: Reports: Other (See Below) Cardiovascular Surgical History: Reports: None Respiratory Surgical History: Reports: None GI Surgical History: Reports: None Female Surgical History: Reports: Hysterectomy Endocrine Surgical History: Reports: None Neurological Surgical History: Reports: None Musculoskeletal Surgical History: Reports: Arthroscopic Procedure, Knee Replacement Oncologic Surgical History: Reports: Biopsy of Breast Dermatological Surgical History: Reports: Skin Biopsy Social & Family History - Family History Family Medical History: Noncontributory - Tobacco Use Smoking Status *Q: Never Smoker Used Tobacco, but Quit: No Second Hand Smoke Exposure: No - Caffeine Use Caffeine Use: Reports: Coffee - Alcohol Use Days Per Week of Alcohol Use: 0 - Recreational Drug Use Recreational Drug Use: No H&P Review of Systems - Review of Systems: Review Of Systems: See Below General: Reports: Weakness HEENT: Reports: No Symptoms Pulmonary: Reports: No Symptoms Cardiovascular: Reports: No Symptoms Gastrointestinal: Reports: Nausea Genitourinary: Reports: No Symptoms Musculoskeletal: Reports: No Symptoms Skin: Reports: No Symptoms Psychiatric: Reports: No Symptoms Neurological: Reports: Dizziness Hematologic/Lymphatic: Reports: No Symptoms Immunologic: Reports: No Symptoms Exam - Exam Exam: See Below - Vital Signs Vital Signs: Last Vital Signs Temp 36.1 C 02/04/17 14:14 Pulse 74 02/04/17 14:14 Resp 18 02/04/17 14:14 BP 139/79 02/04/17 14:14 Pulse Ox 97 02/04/17 14:14 Weight: 114 kg - Exam General: Alert, Oriented, Cooperative HEENT: Conjunctiva Clear, EACs Clear, EOMI, Hearing Intact, Mucosa Moist & [place] , Nares Patent, Normal Nasal Septum, Posterior Pharynx Clear, Pupils Equal, Pupils Reactive, TMs Clear Neck: Supple, Trachea Midline, +2 Carotid Pulse wo Bruit. No: JVD Lungs: Clear to Auscultation, Normal Respiratory Effort Cardiovascular: Regular Rate, Regular Rhythm GI/Abdominal Exam: Normal Bowel Sounds, Soft, Non-Tender, No Organomegaly Back Exam: Normal Inspection Extremities: Normal Inspection, No Pedal Edema, Normal Capillary Refill Peripheral Pulses: 2+: Radial (L), Radial (R), Dorsalis Pedis (L), Dorsalis Pedis (R) Skin: Warm, Dry, Intact Neurological: Cranial Nerves Intact, Reflexes Equal Bilateral Neuro Extensive - Mental Status: Alert, Oriented x3 Psychiatric: Alert, Normal Affect, Normal Mood - Patient Data Result Diagrams: 02/04/17 11:33 02/04/17 11:33 *Q Meaningful Use (ADM) - VTE *Q VTE Criteria *Q: - Stroke *Q Stroke Criteria *Q: - AMI *Q AMI Criteria *Q: Problem List Initiated/Reviewed/Updated: Yes Orders Last 24hrs: Active Orders 24 hr Category Date Time Status Admission Status [Patient Status] [ADT] Routine ADT 02/04/17 15:25 Active Medication Orders Sodium Chloride (Normal Saline) 1,000 mls @ 999 mls/hr IV ASDIRECTED [facility] Last Admin: 02/04/17 11:48 Dose: 999 mls/hr Assessment/Plan Comment:: Assessment: 66 year old fm with history of CAD, DM T2, DVT, Chronic Pain, DELVIS and depression is admitted for weakness and dizziness secondary to dehydration likely from recent Viral Gastroenteritis. As per her, she also has active blood in right femoral vein for which she is on eliquis. Plan: 1. Dizziness and Weakness, likely secondary to Dehydration -admit to observation -start IV NS at 125 ml/hour -repeat cbc/bmp in am -Zofran PRN for nausea 2. DVT, right femoral vein (as per her) -resume home Eliquis -obtain records from [facility] 3. DM Type 2, controlled -hold home Victoza -start ISS low dose protocol with BG monitoring TIDAC 4. CAD -resume home atorvastatin and aspirin 5. Chronic Pain -resume home Gabapentin 6. Anxiety -resume home Hydroxyzine Diet: diabetic DVT Prophylaxis: Eliquis Dispo: within 48 hours
[2017-02-04] MEDS ORDERED: Acetaminophen 325 MG Tab PO PRN (16:35)
[2017-02-04] MEDS ORDERED: Ondansetron 4 MG/2 ML SDV IVPUSH PRN (16:35)
[2017-02-04] MEDS: Insulin Aspart 100 Units/ML 3 ML Pen SUBCUT SCH (17:20)
[2017-02-04] MEDS: Apixaban 5 MG Tab PO SCH (17:29)
[2017-02-04] MEDS: Sodium Chloride 0.9% 1,000 ML IV SCH (17:29)
[2017-02-04] MEDS ORDERED: Gabapentin 300 MG Cap PO SCH (18:25)
[2017-02-04] MEDS ORDERED: atorvaSTATin 40 MG Tab PO SCH (21:00)
[2017-02-04] MEDS ORDERED: Latanoprost 0.005% Ophth Soln 2.5 ML Bottle EYERT SCH (21:00)
[2017-02-04] MEDS: hydrOXYzine Pamoate 25 MG Cap PO SCH (21:28)
[2017-02-04] MEDS: Gabapentin 300 MG Cap PO SCH (21:28)
[2017-02-04] MEDS: Promethazine 25 MG Tab PO PRN (23:19)
[2017-02-05] MEDS: Sodium Chloride 0.9% 1,000 ML IV SCH ×2 (01:37→10:32)
[2017-02-05] MEDS: Insulin Aspart 100 Units/ML 3 ML Pen SUBCUT SCH ×2 (06:32→13:54)
[2017-02-05] MEDS: Apixaban 5 MG Tab PO SCH (06:32)
[2017-02-05] MEDS: Gabapentin 300 MG Cap PO SCH (06:32)
[2017-02-05 06:48] LABS: CHLORIDE,CL 112 mmol/L (98-110); SODIUM,NA 146 mmol/L (136-146)
[2017-02-05] MEDS ORDERED: Omeprazole 20 MG Cap.CR PO SCH (07:30)
[2017-02-05] MEDS: Promethazine 25 MG Tab PO PRN (08:37)
[2017-02-05] MEDS ORDERED: Atropine/Diphenoxylate 0.025-2.5 MG Tab PO PRN (09:19)
[2017-02-05] MEDS: hydrOXYzine Pamoate 25 MG Cap PO SCH (09:31)
[2017-02-05 11:59] VITALS: BP 126/62
--- NOTE | 2017-02-05 12:52 | PCM.DCSUM1 ---
Discharge Summary - Hospital Course Free Text/Narrative:: 66 yo fm admitted 02/04/17 for weakness and dizziness secondary to dehydration from likely recent viral gastroenteritis. She also complained of nausea, vomiting and diarrhea. She was treated with IVF and antiemetics. Following day she was feeling much better. Her vitals and labs were normal. She was discharged home and was informed to f/u with her pcp within 1-2 weeks. She was discharged home with phenergan prn for nausea and vomiting and Lomotil PRN for diarrhea. No other changes made to medications. - Discharge Data Discharge Date: 02/05/17 Discharge Disposition: Home, Self-Care 01 Condition: Good - Patient Instructions Diet: Usual Diet as Tolerated Activity: As Tolerated, Rest and Relax Today Driving: Do Not Drive - Discharge Plan Prescriptions/Med Rec: Atropine/Diphenoxylate [Lomotil 0.025-2.5 MG] 1 tab PO BID PRN #30 tablet PRN Reason: Diarrhea Promethazine [Phenergan] 25 mg PO Q6H PRN #30 tablet PRN Reason: Nausea/Vomiting Home Medications: Home Meds EPINEPHrine [Adrenalin Chloride] 0.3 mg IM ASDIRECTED PRN 05/27/13 [History] Omeprazole 40 mg PO ACBREAKFAST 05/27/13 [History] Latanoprost [Xalatan 0.005% Ophth Soln] 1 drop EYERT BEDTIME 03/07/15 [History] Loperamide [Imodium AD] 2 mg PO TID PRN 03/07/15 [History] Apixaban [Eliquis] 5 mg PO 0630,1830 12/20/16 [History] Gabapentin [Neurontin] 200 mg PO 1400 12/20/16 [History] Liraglutide [Victoza] 1.8 mg SUBCUT DAILY@0700 12/20/16 [History] atorvaSTATin [Lipitor] 40 mg PO BEDTIME 12/20/16 [History] Acetaminophen [Tylenol Extra Strength] 500 mg PO Q8H PRN 01/31/17 [History] Colesevelam HCl [Welchol] 625 mg PO MOWEFR@1000 01/31/17 [History] Gabapentin [Neurontin] 300 mg PO 0625,1825 01/31/17 [History] hydrOXYzine Pamoate [Hydroxyzine Pamoate] 25 mg PO BID 01/31/17 [History] Atropine/Diphenoxylate [Lomotil 0.025-2.5 MG] 1 tab PO BID PRN #30 tablet [Rx] Promethazine [Phenergan] 25 mg PO Q6H PRN #30 tablet 02/05/17 [Rx] Referrals: Олег Gilbert MD [Primary Care Provider] - - Discharge Summary/Plan Comment DC Time >30 min.: No - Review of Systems General: Reports: No Symptoms HEENT: Reports: No Symptoms Pulmonary: Reports: No Symptoms Cardiovascular: Reports: No Symptoms Gastrointestinal: Reports: Diarrhea, Nausea Genitourinary: Reports: No Symptoms Musculoskeletal: Reports: No Symptoms Skin: Reports: No Symptoms Neurological: Reports: No Symptoms Psychiatric: Reports: No Symptoms - Patient Data Vitals - Most Recent: Last Vital Signs Temp 36.3 C 02/05/17 11:58 Pulse 71 02/05/17 11:58 Resp 18 02/05/17 11:58 BP 126/62 02/05/17 11:58 Pulse Ox 95 02/05/17 11:58 Weight - Most Recent: 114 kg I&O - Last 24 hours: Intake & Output 02/04/17 02/05/17 02/05/17 22:59 06:59 14:59 Intake Total 250 1882 Output Total 600 Balance 250 1282 Lab Results - Last 24 hrs: Laboratory Results - last 24 hr 02/04/17 02/05/17 02/05/17 Range/Units 16:55 06:00 06:00 WBC 5.13 (4.0-11.0) K/uL RBC 4.22 L (4.30-5.90) M/uL Hgb 12.5 (12.0-16.0) g/dL Hct 38.4 (36.0-46.0) % MCV 91.0 (80.0-98.0) fL MCH 29.6 (27.0-32.0) pg MCHC 32.6 (31.0-37.0) g/dL RDW Std Deviation 47.4 (28.0-62.0) fl RDW Coeff of Tisha 15 (11.0-15.0) % Plt Count 124 L (150-400) K/uL MPV 10.30 (7.40-12.00) fL Neut % (Auto) 48.9 (48.0-80.0) % Lymph % (Auto) 42.9 H (16.0-40.0) % Sullivan % (Auto) 5.7 (0.0-15.0) % Eos % (Auto) 2.3 (0.0-7.0) % Baso % (Auto) 0.2 (0.0-1.5) % Neut # (Auto) 2.5 (1.4-5.7) K/uL Lymph # (Auto) 2.2 (0.6-2.4) K/uL Sullivan # (Auto) 0.3 (0.0-0.8) K/uL Eos # (Auto) 0.1 (0.0-0.7) K/uL Baso # (Auto) 0.0 (0.0-0.1) K/uL Nucleated RBC % 0.0 /100WBC Nucleated RBCs # 0 K/uL Sodium 146 (136-146) mmol/L Potassium 3.7 (3.5-5.1) mmol/L Chloride 112 H (98-110) mmol/L Carbon Dioxide 24 (21-31) mmol/L BUN 4 L (6.0-23.0) mg/dL Creatinine 0.7 (0.6-1.5) mg/dL Est Cr Clr Drug Dosing 76.42 mL/min Estimated GFR (MDRD) > 60.0 ml/min Glucose 86 (60-110) mg/dL POC Glucose 70 (60-110) mg/dL Calcium 8.3 L (8.8-10.8) mg/dL 02/05/17 02/05/17 Range/Units 06:11 11:17 WBC (4.0-11.0) K/uL RBC (4.30-5.90) M/uL Hgb (12.0-16.0) g/dL Hct (36.0-46.0) % MCV (80.0-98.0) fL MCH (27.0-32.0) pg MCHC (31.0-37.0) g/dL RDW Std Deviation (28.0-62.0) fl RDW Coeff of Tisha (11.0-15.0) % Plt Count (150-400) K/uL MPV (7.40-12.00) fL Neut % (Auto) (48.0-80.0) % Lymph % (Auto) (16.0-40.0) % Sullivan % (Auto) (0.0-15.0) % Eos % (Auto) (0.0-7.0) % Baso % (Auto) (0.0-1.5) % Neut # (Auto) (1.4-5.7) K/uL Lymph # (Auto) (0.6-2.4) K/uL Sullivan # (Auto) (0.0-0.8) K/uL Eos # (Auto) (0.0-0.7) K/uL Baso # (Auto) (0.0-0.1) K/uL Nucleated RBC % /100WBC Nucleated RBCs # K/uL Sodium (136-146) mmol/L Potassium (3.5-5.1) mmol/L Chloride (98-110) mmol/L Carbon Dioxide (21-31) mmol/L BUN (6.0-23.0) mg/dL Creatinine (0.6-1.5) mg/dL Est Cr Clr Drug Dosing mL/min Estimated GFR (MDRD) ml/min Glucose (60-110) mg/dL POC Glucose 80 100 (60-110) mg/dL Calcium (8.8-10.8) mg/dL Med Orders - Current: Current Medications Acetaminophen (Tylenol) 650 mg PO Q4H PRN PRN Reason: Pain (Mild 1-3)/fever Last Admin: 02/05/17 09:31 Dose: 650 mg Apixaban (Eliquis) 5 mg PO 0630,1830 [place] Last Admin: 02/05/17 06:32 Dose: 5 mg Atorvastatin Calcium (Lipitor) 40 mg PO BEDTIME [place] Last Admin: 02/04/17 21:28 Dose: 40 mg Colesevelam HCl (Welchol) 625 mg PO MOWEFR@1000 [place] Diphenoxylate HCl/Atropine (Lomotil 0.025-2.5 Mg) 1 tab PO BID PRN PRN Reason: Diarrhea Last Admin: 02/05/17 09:31 Dose: 1 tab Gabapentin (Neurontin) 200 mg PO 1400 [place] Gabapentin (Neurontin) 300 mg PO 0625,2200 [place] Last Admin: 02/05/17 06:32 Dose: 300 mg Hydroxyzine Pamoate (Vistaril) 25 mg PO BID [facility] Last Admin: 02/05/17 09:31 Dose: 25 mg Sodium Chloride (Normal Saline) 1,000 mls @ 999 mls/hr IV ASDIRECTED [facility] Last Admin: 02/04/17 11:48 Dose: 999 mls/hr Sodium Chloride (Normal Saline) 1,000 mls @ 125 mls/hr IV ASDIRECTED [facility] Last Admin: 02/05/17 10:32 Dose: 125 mls/hr Insulin Aspart (Novolog) 0 unit SUBCUT TIDAC [facility] PRN Reason: Protocol Last Admin: 02/05/17 06:32 Dose: Not Given Latanoprost (Xalatan 0.005% Ophth Soln) 0 ml EYERT BEDTIME [facility] Last Admin: 02/04/17 21:28 Dose: 1 drop Omeprazole (Omeprazole) 40 mg PO ACBREAKFAST [facility] Last Admin: 02/05/17 06:32 Dose: 40 mg Ondansetron HCl (Zofran) 4 mg IVPUSH Q6H PRN PRN Reason: Nausea/Vomiting Promethazine HCl (Phenergan) 25 mg PO Q4H PRN PRN Reason: Nausea/Vomiting Last Admin: 02/05/17 08:37 Dose: 25 mg Discontinued Medications Gabapentin (Neurontin) 300 mg PO 06,5 [facility] Meclizine HCl (Antivert) 25 mg PO ONETIME ONE Stop: 02/04/17 11:46 Last Admin: 02/04/17 11:49 Dose: 25 mg Ondansetron HCl (Zofran) 4 mg IVPUSH ONETIME ONE Stop: 02/04/17 11:36 Last Admin: 02/04/17 11:52 Dose: Not Given - Exam General: Reports: Alert, Oriented, No Acute Distress HEENT: Reports: Pupils Equal, Pupils Reactive Neck: Reports: Supple Lungs: Reports: Clear to Auscultation, Normal Respiratory Effort Cardiovascular: Reports: Regular Rate, Regular Rhythm GI/Abdominal Exam: Normal Bowel Sounds, Soft, Non-Tender, No Organomegaly, No Distention. No: Guarding, Rigid, Rebound Extremities: Normal Inspection, Normal Capillary Refill Skin: Reports: Warm, Dry, Intact Neurological: Reports: No New Focal Deficit Psy/Mental Status: Reports: Alert, Normal Affect, Normal Mood *Q Meaningful Use (DIS) - VTE *Q VTE Criteria *Q: - Stroke *Q Stroke Criteria *Q: - AMI *Q AMI Criteria *Q:
[2017-02-05] MEDS ORDERED: Gabapentin 100 MG Cap PO SCH (14:00)
[2017-02-07] MEDS ORDERED: Colesevelam 625 MG Tab PO SCH (10:00)
== END 2017-02-05 15:00 | disposition home or self-care (01) ==
LOC: MW.ED 11:20 → MW.MS 14:04
PROVIDERS: ADMIT Family Medicine; ATTEND Family Medicine
DX: E86.0 Dehydration (principal); E11.9 Type 2 diabetes mellitus without complications; I25.10 Atherosclerotic heart disease of native coronary artery without angina pectoris; G89.4 Chronic pain syndrome; F32.9 Major depressive disorder, single episode, unspecified; I48.91 Unspecified atrial fibrillation; J45.909 Unspecified asthma, uncomplicated; K21.9 Gastro-esophageal reflux disease without esophagitis; M19.90 Unspecified osteoarthritis, unspecified site; F41.1 Generalized anxiety disorder; Z79.899 Other long term (current) drug therapy; Z86.718 Personal history of other venous thrombosis and embolism; Z91.048 Other nonmedicinal substance allergy status; Z88.8 Allergy status to other drugs, medicaments and biological substances; Z88.1 Allergy status to other antibiotic agents; Z88.6 Allergy status to analgesic agent; Z91.018 Allergy to other foods; Z88.0 Allergy status to penicillin; Z88.2 Allergy status to sulfonamides; Z91.040 Latex allergy status; Z85.828 Personal history of other malignant neoplasm of skin; Z90.710 Acquired absence of both cervix and uterus
CPT/HCPCS: 36415; 80048; 80053; 82962; 84484; 85025; 93005; 96360; 99285; A9270; J7040; 96361; 99283; G0378

== ENCOUNTER 2018-09-06 10:07 | Emergency (ER) | payer OTHER ==
[2018-09-06] MEDS ORDERED: methylPREDNISolone Sodium Succinate 125 MG/2 ML SDV IM ONE (10:43)
--- NOTE | 2018-09-06 10:45 | EDM.PDOC ---
ED HPI GENERAL MEDICAL PROBLEM - General Chief Complaint: General Stated Complaint: BURING MOUTH--SENT FROM CLINIC Time Seen by Provider: 09/06/18 10:45 Source of Information: Reports: Patient History Limitations: Reports: No Limitations - History of Present Illness INITIAL COMMENTS - FREE TEXT/NARRATIVE: HISTORY AND PHYSICAL: History of present illness: Patient is a 67-year-old female presents to the ED with complaint of oral burning sensation. 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 She states that a week ago she developed a blister on the roof of her mouth and then started having burning sensation and feeling like her tongue was swollen for the past 3-4 days. She denies any throat tightness, itching or hoarseness but does have a sore throat. She denies fevers, chills, nausea, vomiting, chest pain, shortness of breath, abdominal pain. She states this does feel slightly different than her usual symptoms of burning mouth syndrome. Review of systems: As per history of present illness and below otherwise all systems reviewed and negative. Past medical history: As per history of present illness and as reviewed below otherwise noncontributory. Surgical history: As per history of present illness and as reviewed below otherwise noncontributory. Social history: No reported history of drug or alcohol abuse. Family history: As per history of present illness and as reviewed below otherwise noncontributory. Physical exam: General: Patient sitting comfortably in no acute distress and nontoxic appearing HEENT: There is a small ulceration to the left buccal mucosa. Atraumatic, normocephalic, pupils reactive, negative for conjunctival pallor or scleral icterus, mucous membranes moist, throat clear, neck supple, nontender, trachea midline. No meningeal signs. Lungs: Clear to auscultation, breath sounds equal bilaterally, chest nontender. Heart: S1S2, regular, negative for clicks, rubs, or overt murmur. Abdomen: Soft, nondistended, nontender. Negative for masses or hepatosplenomegaly. Negative for costovertebral tenderness. No rigidity, rebound , guarding. Pelvis: Stable nontender. Genitourinary: Deferred. Rectal: Deferred. Extremities: Atraumatic, negative for cords or calf pain. Neurovascular unremarkable. Neuro: Awake, alert, oriented. Cranial nerves II through XII unremarkable. Cerebellum unremarkable. Motor and sensory unremarkable throughout. Exam nonfocal. Notes: Diagnostics: Strep Therapeutics: Solumedrol 125mg Prescriptions: Medrol dosepak Magic mouth wash Impression: Oral burning sensation Plan: Take medication as instructed. Tylenol or motrin as needed for discomfort Follow up with primary care provider Return to ED as needed as discussed Definitive disposition and diagnosis as appropriate pending reevaluation and review of above. mouth Pain Score (Numeric/FACES): 9 - Related Data Allergies Allergy/AdvReac Type Severity Reaction Status Date / Time adhesive Allergy Intermediate Blisters Verified 09/06/18 10:23 brimonidine tartrate Allergy Intermediate Burning Verified 09/06/18 10:23 [From Alphagan P] clindamycin Allergy Intermediate Swelling Verified 09/06/18 10:23 duloxetine HCl Allergy Intermediate Shortness Verified 09/06/18 10:23 [From Cymbalta] of Breath chlorhexidine Allergy Mild Other Verified 09/06/18 10:23 methylprednisolone Allergy Mild Swelling Verified 09/06/18 10:23 tramadol HCl [From Ultracet] Allergy Mild Rash Verified 09/06/18 10:23 valdecoxib [From Bextra] Allergy Mild Rash Verified 09/06/18 10:23 acetaminophen [From Roxicet] Allergy Rash Verified 09/06/18 10:23 bupropion HCl Allergy Hallucinati Verified 09/06/18 10:23 [From Wellbutrin] ons canagliflozin [From Invokana] Allergy Rash Verified 09/06/18 10:23 cefadroxil hydrate Allergy Rash Verified 09/06/18 10:23 [From Ultracef] ciprofloxacin Allergy Rash Verified 09/06/18 10:23 foot deodorant combination Allergy Burning Verified 09/06/18 10:23 no.1 [From Desenex] gold sodium thiomalate Allergy Swelling Verified 09/06/18 10:23 lorazepam Allergy Hallucinati Verified 09/06/18 10:23 ons metformin Allergy Rash Verified 09/06/18 10:23 miconazole nitrate Allergy Burning Verified 09/06/18 10:23 [From Desenex] oxycodone [Oxycodone] Allergy Rash Verified 09/06/18 10:23 oxycodone HCl [From Roxicet] Allergy Rash Verified 09/06/18 10:23 pineapple Allergy Swollen Verified 09/06/18 10:23 Tongue povidone-iodine Allergy Rash Verified 09/06/18 10:23 [From Betadine] propranolol [From Inderal LA] Allergy Airway Verified 09/06/18 10:23 Tightness raspberry Allergy Swollen Verified 09/06/18 10:23 Tongue rivaroxaban [From Xarelto] Allergy Other Verified 09/06/18 10:23 sitagliptin [From Januvia] Allergy Liver Verified 09/06/18 10:23 Problems soap [From Betadine] Allergy Rash Verified 09/06/18 10:23 Sulfa (Sulfonamide Allergy Edema Verified 09/06/18 10:23 Antibiotics) undecylenic acid Allergy Burning Verified 09/06/18 10:23 [From Desenex] zinc undecylenate Allergy Burning Verified 09/06/18 10:23 [From Desenex] latex AdvReac Severe Anaphylactic Verified 09/06/18 10:23 Shock clonazepam [From Klonopin] AdvReac Intermediate Hallucinati Verified 09/06/18 10 :23 ons pregabalin [From Lyrica] AdvReac Intermediate Hallucinati Verified 09/06/18 10: 23 ons exenatide [From Bydureon] AdvReac Mild Other Verified 09/06/18 10:23 gentamicin sulfate AdvReac Mild intolerance Verified 09/06/18 10:23 [From Garamycin] glimepiride AdvReac Mild Other Verified 09/06/18 10:24 liraglutide [From Victoza] AdvReac Mild Other Verified 09/06/18 10:23 2-Hydroxypropyl Methacrylate Allergy Burning Uncoded 09/06/18 10:23 bio-mesh screen Allergy Other Uncoded 09/06/18 10:23 chlorhexidine gluconate swab Allergy Rash Uncoded 09/06/18 10:23 stick Clavilon Swab Stick Allergy Rash Uncoded 09/06/18 10:23 ethyleneglycol Dimethacrylate Allergy Swelling Uncoded 09/06/18 10:23 evergreen pollen Allergy Anaphylactic Uncoded 09/06/18 10:23 Shock geomycin Allergy Swelling Uncoded 09/06/18 10:23 Glue/Paste Allergy Blisters Uncoded 09/06/18 10:25 java crown Allergy Other Uncoded 09/06/18 10:23 Muslin Allergy Rash Uncoded 09/06/18 10:23 potassium Dicyanoaurate Allergy Edema Uncoded 09/06/18 10:23 surgical foam Allergy Blisters Uncoded 09/06/18 10:23 Home Meds: Home Meds Apixaban [Eliquis] 5 mg PO BID 12/10/17 [History] EPINEPHrine [Epipen 2-Stas] 1 dose IM ASDIRECTED 12/10/17 [History] Enoxaparin [Lovenox] 1 dose SQ ASDIRECTED 12/10/17 [History] Gabapentin [Neurontin] 100 mg PO BEDTIME 12/10/17 [History] Latanoprost [Xalatan 0.005% Ophth Soln] 1 drop EYERT DAILY 12/10/17 [History] Multivitamin [One Daily] 1 tab PO DAILY 12/10/17 [History] atorvaSTATin [Lipitor] 40 mg PO DAILY 12/10/17 [History] Azelastine HCl 1 spray NASBOTH DAILY 09/06/18 [History] Diphenhyd/Lidocaine/Nystatin [First-Bxn Mouthwash] 10 ml MM TID #237 ml [Rx] Ipratropium [Atrovent 0.06% Nasal [place]] 1 spray NASBOTH DAILY 09/06/18 [History ] methylPREDNISolone [Medrol] 4 mg PO ASDIRECTED #1 tab.ds.pk 09/06/18 [Rx] Past Medical History HEENT History: Reports: None, Other (See Below) 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 pneumonia. Restrictive Lung Disease Gastrointestinal History: Reports: Bowel Obstruction, Chronic Diarrhea, GERD, Other (See Below) Other Gastrointestinal History: explore laparatomy 2007. abdominal hernia Genitourinary History: Reports: Other (See Below) Other Genitourinary History: bladder/kidney/urine infections [employer] HISTORIAN History: Reports: , Other (See Below) Other [employer] HISTORIAN History: ovarian cyst. molar Musculoskeletal History: Reports: Arthritis, Back Pain, Chronic, Osteoarthritis Other Musculoskeletal History: Mild Osteopenia Neurological History: Reports: None Psychiatric History: Reports: Anxiety, Depression Endocrine/Metabolic History: Reports: Diabetes, Type II Hematologic History: Reports: Other (See Below) Other Hematologic History: clotting disorder Immunologic History: Reports: None Oncologic (Cancer) History: Reports: Basal Cell Carcinoma Dermatologic History: Reports: Eczema, Psoriasis, Other (See Below) Other Dermatologic History: dermatitis. oral lichen planus - Infectious Disease History Infectious Disease History: Reports: Chicken Pox, Measles, Mumps, Shingles - Past Surgical History Head Surgeries/Procedures: Reports: None HEENT Surgical History: Reports: Other (See Below) Cardiovascular Surgical History: Reports: None Respiratory Surgical History: Reports: None GI Surgical History: Reports: None Female Surgical History: Reports: Hysterectomy Endocrine Surgical History: Reports: None Neurological Surgical History: Reports: None Musculoskeletal Surgical History: Reports: Arthroscopic Procedure, Knee Replacement Oncologic Surgical History: Reports: Biopsy of Breast Dermatological Surgical History: Reports: Skin Biopsy Social & Family History - Family History Family Medical History: Noncontributory - Tobacco Use Smoking Status *Q: Never Smoker - Caffeine Use Caffeine Use: Reports: Coffee - Recreational Drug Use Recreational Drug Use: No ED ROS GENERAL - Review of Systems Review Of Systems: ROS reveals no pertinent complaints other than HPI. ED EXAM, GENERAL - Physical Exam Exam: See Below (see dictation) Course - Vital Signs Last Recorded V/S: Last Vital Signs Temp 96.0 F 09/06/18 10:16 Pulse 81 09/06/18 10:16 Resp 18 09/06/18 10:16 BP 119/64 09/06/18 10:16 Pulse Ox 96 09/06/18 10:16 - Orders/Labs/Meds Orders: Active Orders 24 hr Category Date Time Status CULTURE STREP A CONFIRMATION [] Stat Lab 09/06/18 10:58 Results STREP SCRN A RAPID W CULT CONF [] Stat Lab 09/06/18 10:58 Results Meds: Medications Discontinued Medications Generic Name Dose Route Start Last Admin Trade Name Freq PRN Reason Stop Dose Admin Methylprednisolone Sodium Succinate 125 mg 09/06/18 10:43 09/06/18 11:01 Solu-Medrol IM 09/06/18 10:44 125 mg ONETIME ONE Administration Departure - Departure Time of Disposition: 11:34 Disposition: Home, Self-Care 01 Condition: Good Clinical Impression: Burning sensation of mouth - Discharge Information Prescriptions: Diphenhyd/Lidocaine/Nystatin [First-Bxn Mouthwash] 10 ml MM TID #237 ml methylPREDNISolone [Medrol] 4 mg PO ASDIRECTED #1 tab.ds.pk Referrals: PCP,Unknown [Primary Care Provider] - Forms: ED Department Discharge Additional Instructions: The following information is given to patients seen in the emergency department who are being discharged to home. This information is to outline your options for follow-up care. We provide all patients seen in our emergency department with a follow-up referral. The need for follow-up, as well as the timing and circumstances, are variable depending upon the specifics of your emergency department visit. If you don't have a primary care physician on staff, we will provide you with a referral. We always advise you to contact your personal physician following an emergency department visit to inform them of the circumstance of the visit and for follow-up with them and/or the need for any referrals to a consulting specialist. The emergency department will also refer you to a specialist when appropriate. This referral assures that you have the opportunity for follow-up care with a specialist. All of these measure are taken in an effort to provide you with optimal care, which includes your follow-up. Under all circumstances we always encourage you to contact your private physician who remains a resource for coordinating your care. When calling for follow-up care, please make the office aware that this follow-up is from your recent emergency room visit. If for any reason you are refused follow-up, please contact the [facility] Emergency Department at and asked to speak to the emergency department charge nurse. [facility] [address] [place] [id number] [address] Take medication as instructed. Tylenol or motrin as needed for discomfort Follow up with primary care provider Return to ED as needed as discussed - My Orders Last 24 Hours: My Active Orders 09/06/18 10:58 CULTURE STREP A CONFIRMATION [RM] Stat STREP SCRN A RAPID W CULT CONF [RM] Stat - Assessment/Plan Last 24 Hours: My Active Orders 09/06/18 10:58 CULTURE STREP A CONFIRMATION [RM] Stat STREP SCRN A RAPID W CULT CONF [RM] Stat
[2018-09-06 12:02] VITALS: BP 111/70
== END 2018-09-06 12:06 | disposition home or self-care (01) ==
LOC: MW.ED 10:07
DX: R20.8 Other disturbances of skin sensation (principal); I48.91 Unspecified atrial fibrillation; E11.9 Type 2 diabetes mellitus without complications; F41.9 Anxiety disorder, unspecified; F32.9 Major depressive disorder, single episode, unspecified; Z79.01 Long term (current) use of anticoagulants; Z79.899 Other long term (current) drug therapy; Z88.1 Allergy status to other antibiotic agents
CPT/HCPCS: 87081; 87880; 99283; J2930

== ENCOUNTER 2019-03-19 20:15 | Observation (INO) | payer OTHER ==
[2019-03-19] MEDS ORDERED: Sodium Chloride 0.9% 10 ML Syringe FLUSH PRN (20:24)
[2019-03-19] MEDS ORDERED: Sodium Chloride 0.9% 2.5 ML Syringe FLUSH PRN (20:24)
[2019-03-19] MEDS ORDERED: Aspirin 81 MG Tab.Chew PO ONE (20:48)
--- NOTE | 2019-03-19 20:53 | EDM.PDOC ---
ED HPI GENERAL MEDICAL PROBLEM - General Chief Complaint: Chest Pain Stated Complaint: HARD TIME BREATHING,CHEST PAIN Time Seen by Provider: 03/19/19 20:37 - History of Present Illness INITIAL COMMENTS - FREE TEXT/NARRATIVE: HISTORY AND PHYSICAL: History of present illness: The patient is a 68-year-old female who follows with Dr. 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 Campos, at [facility] and has a history of restrictive lung disease and stiff heart disease as well as a heart murmur and presents with sudden onset of chest pressure at the lower sternum area that radiated to the right anterior chest associated with some lightheadedness and a slight headache. The patient says she had a completely normal day today and was actually even at the gym earlier doing her normal activities and was preparing dinner when she suddenly felt somewhat lightheaded a little dizzy and had a slight headache but no chest pain and she had slight shortness of breath. This occurred at 7 PM, approximately 2 hours ago. She thought she should lay down which she did and she said that the discomfort seemed to get worse and she rated as a 10/10. She says currently now it is a 7/10 but she did not take anything to help it. She describes it as bricks sitting on her chest and it is localized in the lower mid sternum and radiates slightly to the right. She has no abdominal pain no nausea or vomiting and no upper respiratory symptoms other than the shortness of breath which is now better. She tells me that she has had episodes of this in the past very similarly and has spoken with her doctors but she is never gone to the ED for it and they told her that if it ever happened again she should come here which is why she is here. Her last episode of this discomfort was about 10 months ago. During her work-up for her lung and heart disease she had a heart cath which was less than 2 years ago which was clean. She has no leg pain or swelling and she is currently on anticoagulation, Eliquis, and has a history of DVTs and PEs. The patient says that she does have an inhaler at home that she can use as needed but she was told by her tile erector not to use it as it likely will not help her with her restrictive lung disease. She does not use oxygen and she is normally active. Currently in the ED she is not complaining of dizziness lightheadedness or shortness of breath but just the chest pressure. Review of systems: As per history of present illness and below otherwise all systems reviewed and negative. Past medical history: As per history of present illness and as reviewed below otherwise noncontributory. Surgical history: As per history of present illness and as reviewed below otherwise noncontributory. Social history: No reported history of drug or alcohol abuse. Family history: As per history of present illness and as reviewed below otherwise noncontributory. Physical exam: Well developed well-nourished obese female who is nontoxic and speaking clearly in the ED without breathlessness. Vital signs are noted by me HEENT: Atraumatic, normocephalic, pupils reactive, negative for conjunctival pallor or scleral icterus, mucous membranes moist, throat clear, neck supple, nontender, trachea midline. Lungs: Clear to auscultation, breath sounds equal bilaterally, chest nontender. No wheezing stridor or work of breathing Heart: S1S2, regular, negative for clicks, rubs, or JVD. There is a soft systolic ejection murmur appreciated at the left sternal border Abdomen: Soft, nondistended, nontender. Negative for masses or hepatosplenomegaly. Negative for costovertebral tenderness. Pelvis: Stable nontender. Genitourinary: Deferred. Rectal: Deferred. Extremities: Atraumatic, negative for cords or calf pain. Neurovascular unremarkable. There is no pedal edema or leg asymmetry Neuro: Awake, alert, oriented. Cranial nerves II through XII unremarkable. Cerebellum unremarkable. Motor and sensory unremarkable throughout. Exam nonfocal. Diagnostics: EKG chest x-ray CBC CMP troponin CTA of the chest Therapeutics: IV O2 monitor aspirin nitro sublingual ibuprofen, Tylenol with codeine NTP Patient received 3 sublingual nitro and says that her discomfort is not any better or change. I have offered her other medications for pain and she is declining and just wants to do the CAT scan and see what is going on. Patient had initially asked for ibuprofen for pain management and then subsequently asked for Tylenol 3 and her pain is easing up significantly. She is aware of the CT scan results and I will discussed this case with Dr. Pemberton for observation for 23-hour admission for serial EKGs and cardiac enzymes. The patient is in agreement. Impression: Atypical chest pain Definitive disposition and diagnosis as appropriate pending reevaluation and review of above. Chest Pain Score (Numeric/FACES): 8 - Related Data Allergies Allergy/AdvReac Type Severity Reaction Status Date / Time adhesive Allergy Intermediate Blisters Verified 03/19/19 20:19 brimonidine tartrate Allergy Intermediate Burning Verified 03/19/19 20:19 [From Alphagan P] clindamycin Allergy Intermediate Swelling Verified 03/19/19 20:19 duloxetine HCl Allergy Intermediate Shortness Verified 03/19/19 20:19 [From Cymbalta] of Breath chlorhexidine Allergy Mild Other Verified 03/19/19 20:19 methylprednisolone Allergy Mild Swelling Verified 03/19/19 20:19 tramadol HCl [From Ultracet] Allergy Mild Rash Verified 03/19/19 20:19 valdecoxib [From Bextra] Allergy Mild Rash Verified 03/19/19 20:19 acetaminophen [From Roxicet] Allergy Rash Verified 03/19/19 20:19 bupropion HCl Allergy Hallucinati Verified 03/19/19 20:19 [From Wellbutrin] ons canagliflozin [From Invokana] Allergy Rash Verified 03/19/19 20:19 cefadroxil hydrate Allergy Rash Verified 03/19/19 20:19 [From Ultracef] ciprofloxacin Allergy Rash Verified 03/19/19 20:19 foot deodorant combination Allergy Burning Verified 03/19/19 20:19 no.1 [From Desenex] gold sodium thiomalate Allergy Swelling Verified 03/19/19 20:19 lorazepam Allergy Hallucinati Verified 03/19/19 20:19 ons metformin Allergy Rash Verified 03/19/19 20:19 miconazole nitrate Allergy Burning Verified 03/19/19 20:19 [From Desenex] oxycodone [Oxycodone] Allergy Rash Verified 03/19/19 20:19 oxycodone HCl [From Roxicet] Allergy Rash Verified 03/19/19 20:19 pineapple Allergy Swollen Verified 03/19/19 20:19 Tongue povidone-iodine Allergy Rash Verified 03/19/19 20:19 [From Betadine] propranolol [From Inderal LA] Allergy Airway Verified 03/19/19 20:19 Tightness raspberry Allergy Swollen Verified 03/19/19 20:19 Tongue rivaroxaban [From Xarelto] Allergy Other Verified 03/19/19 20:19 sitagliptin [From Januvia] Allergy Liver Verified 03/19/19 20:19 Problems soap [From Betadine] Allergy Rash Verified 03/19/19 20:19 Sulfa (Sulfonamide Allergy Edema Verified 03/19/19 20:19 Antibiotics) undecylenic acid Allergy Burning Verified 03/19/19 20:19 [From Desenex] zinc undecylenate Allergy Burning Verified 03/19/19 20:19 [From Desenex] latex AdvReac Severe Anaphylactic Verified 03/19/19 20:19 Shock clonazepam [From Klonopin] AdvReac Intermediate Hallucinati Verified 03/19/19 20 :19 ons pregabalin [From Lyrica] AdvReac Intermediate Hallucinati Verified 03/19/19 20: 19 ons exenatide [From Bydureon] AdvReac Mild Other Verified 03/19/19 20:19 gentamicin sulfate AdvReac Mild intolerance Verified 03/19/19 20:19 [From Garamycin] glimepiride AdvReac Mild Other Verified 03/19/19 20:19 liraglutide [From Victoza] AdvReac Mild Other Verified 03/19/19 20:19 2-Hydroxypropyl Methacrylate Allergy Burning Uncoded 03/19/19 20:19 bio-mesh screen Allergy Other Uncoded 03/19/19 20:19 chlorhexidine gluconate swab Allergy Rash Uncoded 03/19/19 20:19 stick Clavilon Swab Stick Allergy Rash Uncoded 03/19/19 20:19 ethyleneglycol Dimethacrylate Allergy Swelling Uncoded 03/19/19 20:19 evergreen pollen Allergy Anaphylactic Uncoded 03/19/19 20:19 Shock geomycin Allergy Swelling Uncoded 03/19/19 20:19 Glue/Paste Allergy Blisters Uncoded 03/19/19 20:19 java crown Allergy Other Uncoded 03/19/19 20:19 [place] Allergy Rash Uncoded 03/19/19 20:19 potassium Dicyanoaurate Allergy Edema Uncoded 03/19/19 20:19 surgical foam Allergy Blisters Uncoded 03/19/19 20:19 Home Meds: Home Meds Apixaban [Eliquis] 5 mg PO BID 12/10/17 [History] EPINEPHrine [Epipen 2-Stas] 1 dose IM ASDIRECTED 12/10/17 [History] Gabapentin [Neurontin] 100 mg PO BEDTIME 12/10/17 [History] Latanoprost [Xalatan 0.005% Ophth Soln] 1 drop EYERT DAILY 12/10/17 [History] Multivitamin [One Daily] 1 tab PO DAILY 12/10/17 [History] atorvaSTATin [Lipitor] 40 mg PO DAILY 12/10/17 [History] Azelastine HCl 1 spray NASBOTH DAILY 09/06/18 [History] Diphenhyd/Lidocaine/Nystatin [First-Bxn Mouthwash] 10 ml MM TID #237 ml [Rx] Ipratropium [Atrovent 0.06% Nasal [place]] 1 spray NASBOTH DAILY 09/06/18 [History ] Past Medical History HEENT History: Reports: None, Other (See Below) 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 pneumonia. Restrictive Lung Disease Gastrointestinal History: Reports: Bowel Obstruction, Chronic Diarrhea, GERD, Other (See Below) Other Gastrointestinal History: explore laparatomy 2007. abdominal hernia Genitourinary History: Reports: Other (See Below) Other Genitourinary History: bladder/kidney/urine infections CLINICAL CYTOGENETICIST History: Reports: , Other (See Below) Other CLINICAL CYTOGENETICIST History: ovarian cyst. molar Musculoskeletal History: Reports: Arthritis, Back Pain, Chronic, Osteoarthritis Other Musculoskeletal History: Mild Osteopenia Neurological History: Reports: None Psychiatric History: Reports: Anxiety, Depression Endocrine/Metabolic History: Reports: Diabetes, Type II Hematologic History: Reports: Other (See Below) Other Hematologic History: clotting disorder Immunologic History: Reports: None Oncologic (Cancer) History: Reports: Basal Cell Carcinoma Dermatologic History: Reports: Eczema, Psoriasis, Other (See Below) Other Dermatologic History: dermatitis. oral lichen planus - Infectious Disease History Infectious Disease History: Reports: Chicken Pox, Measles, Mumps - Past Surgical History Head Surgeries/Procedures: Reports: None HEENT Surgical History: Reports: Other (See Below) Cardiovascular Surgical History: Reports: None Respiratory Surgical History: Reports: None GI Surgical History: Reports: None, Colonoscopy Female Surgical History: Reports: Hysterectomy Endocrine Surgical History: Reports: None Neurological Surgical History: Reports: None Musculoskeletal Surgical History: Reports: Arthroscopic Procedure, Knee Replacement Oncologic Surgical History: Reports: Biopsy of Breast Dermatological Surgical History: Reports: Skin Biopsy Social & Family History - Family History Family Medical History: Noncontributory - Tobacco Use Smoking Status *Q: Never Smoker - Caffeine Use Caffeine Use: Reports: None - Recreational Drug Use Recreational Drug Use: No ED ROS GENERAL - Review of Systems Review Of Systems: Comprehensive ROS is negative, except as noted in HPI. ED EXAM, GENERAL - Physical Exam Exam: See Below (see dictation) Course - Vital Signs Last Recorded V/S: Last Vital Signs Temp 35.8 C 03/19/19 20:22 Pulse 94 03/19/19 20:22 Resp 16 03/19/19 23:11 BP 137/71 03/19/19 23:11 Pulse Ox 98 03/19/19 23:11 - Orders/Labs/Meds Orders: Active Orders 24 hr Category Date Time Status Patient Status [ADT] Stat ADT 03/19/19 23:36 Ordered Cardiac Monitoring [RC] . DIRECTED Care 03/19/19 20:24 Active EKG Documentation Completion [RC] STAT Care 03/19/19 20:24 Active Oxygen Therapy, ED [RC] ASDIRECTED Care 03/19/19 20:24 Active Pulse Oximetry [RC] ASDIRECTED Care 03/19/19 20:24 Active Nitroglycerin [Nitro-Bid 2%] Med 03/19/19 23:36 Once 0.5 gm TOP ONETIME ONE Sodium Chloride 0.9% [Saline Flush] Med 03/19/19 20:24 Active 10 ml FLUSH ASDIRECTED PRN Sodium Chloride 0.9% [Saline Flush] Med 03/19/19 20:24 Active 2.5 ml FLUSH ASDIRECTED PRN Saline Lock Insert [OM.PC] Stat Oth 03/19/19 20:24 Ordered Medication Orders Sodium Chloride (Saline Flush) 10 ml FLUSH ASDIRECTED PRN PRN Reason: Keep Vein Open Sodium Chloride (Saline Flush) 2.5 ml FLUSH ASDIRECTED PRN PRN Reason: Keep Vein Open Labs: Laboratory Tests 03/19/19 03/19/19 Range/Units 20:42 20:42 WBC 9.69 (4.0-11.0) K/uL RBC 4.64 (4.30-5.90) M/uL Hgb 14.2 (12.0-16.0) g/dL Hct 43.4 (36.0-46.0) % MCV 93.5 (80.0-98.0) fL MCH 30.6 (27.0-32.0) pg MCHC 32.7 (31.0-37.0) g/dL RDW Std Deviation 47.9 (28.0-62.0) fl RDW Coeff of Tisha 14 (11.0-15.0) % Plt Count 119 L (150-400) K/uL MPV 11.20 (7.40-12.00) fL Neut % (Auto) 58.9 (48.0-80.0) % Lymph % (Auto) 32.0 (16.0-40.0) % [place] % (Auto) 8.0 (0.0-15.0) % Eos % (Auto) 0.9 (0.0-7.0) % Baso % (Auto) 0.2 (0.0-1.5) % Neut # (Auto) 5.7 (1.4-5.7) K/uL Lymph # (Auto) 3.1 H (0.6-2.4) K/uL [place] # (Auto) 0.8 (0.0-0.8) K/uL Eos # (Auto) 0.1 (0.0-0.7) K/uL Baso # (Auto) 0.0 (0.0-0.1) K/uL Nucleated RBC % 0.0 /100WBC Nucleated RBCs # 0 K/uL Sodium 142 (136-145) mmol/L Potassium 3.8 (3.5-5.1) mmol/L Chloride 103 (98-107) mmol/L Carbon Dioxide 26.6 (21.0-32.0) mmol/L BUN 15 (7.0-18.0) mg/dL Creatinine 0.8 (0.6-1.0) mg/dL Est Cr Clr Drug Dosing 64.76 mL/min Estimated GFR (MDRD) > 60.0 ml/min Glucose 110 H (74-106) mg/dL Calcium 9.3 (8.5-10.1) mg/dL Total Bilirubin 0.8 (0.2-1.0) mg/dL AST 20 (15-37) IU/L ALT 32 (14-63) IU/L Alkaline Phosphatase 72 (46-116) U/L Troponin I < 0.050 (0.000-0.056) ng/mL Total Protein 7.8 (6.4-8.2) g/dL Albumin 4.2 (3.4-5.0) g/dL Globulin 3.6 (2.6-4.0) g/dL Albumin/Globulin Ratio 1.2 (0.9-1.6) Meds: Medications Generic Name Dose Route Start Last Admin Trade Name Freq PRN Reason Stop Dose Admin Sodium Chloride 10 ml 03/19/19 20:24 Saline Flush FLUSH ASDIRECTED PRN Keep Vein Open Sodium Chloride 2.5 ml 03/19/19 20:24 Saline Flush FLUSH ASDIRECTED PRN Keep Vein Open Discontinued Medications Generic Name Dose Route Start Last Admin Trade Name Freq PRN Reason Stop Dose Admin Acetaminophen/Codeine Phosphate 2 tab 03/19/19 22:59 03/19/19 23:04 Tylenol With Codeine No.3 300mg/30mg PO 03/19/19 23:00 2 tab ONETIME ONE Administration Aspirin 324 mg 03/19/19 20:48 03/19/19 21:13 Aspirin PO 03/19/19 20:49 324 mg ONETIME ONE Administration Ibuprofen 800 mg 03/19/19 22:05 03/19/19 22:12 Motrin PO 03/19/19 22:06 800 mg ONETIME ONE Administration Iopamidol 100 ml 03/19/19 21:37 Isovue-370 (76%) IVPUSH 03/19/19 21:38 ONETIME STA Iopamidol 100 ml 03/19/19 21:52 Isovue-370 (76%) IVPUSH 03/19/19 21:53 ONETIME STA Nitroglycerin 0.4 mg 03/19/19 20:48 03/19/19 21:24 Nitrostat SL 0.4 mg Q5M PRN Administration Chest Pain Departure - Departure Time of Disposition: 23:38 Disposition: Refer to Observation Condition: Good Clinical Impression: Atypical chest pain - Discharge Information Referrals: Олег Gilbert MD [Primary Care Provider] - Forms: ED Department Discharge Sepsis Event Note - Evaluation Sepsis Screening Result: No Definite Risk - Focused Exam Vital Signs: Vital Signs Temp Pulse Resp BP BP Pulse Ox Pulse Ox 03/19/19 23:11 16 137/71 98 03/19/19 21:24 132/81 03/19/19 21:18 139/78 03/19/19 21:15 16 139/78 96 03/19/19 21:14 148/81 H 03/19/19 20:45 16 156/87 H 95 03/19/19 20:24 100 03/19/19 20:22 35.8 C 94 16 140/78 95 Date Exam was Performed: 03/19/19 Time Exam was Performed: 23:37 - My Orders Last 24 Hours: My Active Orders 03/19/19 20:24 Cardiac Monitoring [RC] . DIRECTED EKG Documentation Completion [RC] STAT Oxygen Therapy, ED [RC] ASDIRECTED Pulse Oximetry [RC] ASDIRECTED Sodium Chloride 0.9% [Saline Flush] 10 ml FLUSH ASDIRECTED PRN Sodium Chloride 0.9% [Saline Flush] 2.5 ml FLUSH ASDIRECTED PRN Saline Lock Insert [OM.PC] Stat 03/19/19 23:36 Patient Status [ADT] Stat Nitroglycerin [Nitro-Bid 2%] 0.5 gm TOP ONETIME ONE - Assessment/Plan Last 24 Hours: My Active Orders 03/19/19 20:24 Cardiac Monitoring [RC] . DIRECTED EKG Documentation Completion [RC] STAT Oxygen Therapy, ED [RC] ASDIRECTED Pulse Oximetry [RC] ASDIRECTED Sodium Chloride 0.9% [Saline Flush] 10 ml FLUSH ASDIRECTED PRN Sodium Chloride 0.9% [Saline Flush] 2.5 ml FLUSH ASDIRECTED PRN Saline Lock Insert [OM.PC] Stat 03/19/19 23:36 Patient Status [ADT] Stat Nitroglycerin [Nitro-Bid 2%] 0.5 gm TOP ONETIME ONE
[2019-03-19] MEDS: Nitroglycerin 0.4 MG Tab.SL SL PRN ×3 (21:14→21:24)
[2019-03-19 21:15] LABS: BLOOD UREA NITROGEN,BUN 15 mg/dL (7.0-18.0); CARBON DIOXIDE,CO2 26.6 mmol/L (21.0-32.0); CHLORIDE,CL 103 mmol/L (98-107); GLUCOSE RANDOM 110 mg/dL (74-106); POTASSIUM,K 3.8 mmol/L (3.5-5.1); SODIUM,NA 142 mmol/L (136-145)
--- NOTE | 2019-03-19 21:30 | CR ---
INDICATION: Shortness of breath TECHNIQUE: Chest radiograph 1 view COMPARISON: None FINDINGS: Severe degradation of image quality noted due to body habitus. Mediastinum: The mediastinum is normal in appearance. The heart silhouette is normal in size and morphology. Lung: Both lungs are unremarkable in appearance. No sign of pleural effusion seen. No pneumothorax is identified. Bone and Soft tissue: Unremarkable for age. IMPRESSION: 1. No acute cardiopulmonary disease is seen. Dictated by: Maverick Zamarripa MD @ 03/19/2019 21:28:20 (Electronically Signed)
[2019-03-19] MEDS ORDERED: Iopamidol 755 Mg/ML 100 ML Bottle IVPUSH STA ×2 (21:37→21:52)
[2019-03-19] MEDS ORDERED: Ibuprofen 800 MG Tab PO ONE (22:05)
[2019-03-19] MEDS ORDERED: Acetaminophen/Codeine 300-30 MG Tab PO ONE (22:59)
--- NOTE | 2019-03-19 23:16 | CT ---
INDICATION: Chest pain TECHNIQUE: CT chest pulmonary PE protocol acquired with IV contrast. 100 mL of Isovue 370 administered. COMPARISON: 05/11/2014 FINDINGS: Cardiovascular structures: Limited opacification and evaluation of some subsegmental pulmonary arteries. Few thin curvilinear luminal hypodensities in right lower lobe pulmonary arteries compatible with residua of chronic pulmonary emboli. No acute appearing large, central or segmental pulmonary emboli seen. A small curvilinear luminal hypodensity in a posterior lingular subsegmental pulmonary artery on images [id number] of series 601 could represent residua of a chronic pulmonary embolus as well. Dilatation of the right main and central pulmonary arteries which could represent pulmonary arterial hypertension. Mild cardiomegaly. An ectatic ascending aorta measuring 3.8 cm. Mediastinum and joshua: A borderline precarinal lymph node. A small hiatal hernia. Lungs: Mosaic attenuation bilaterally which could represent compressive changes with foci of air trapping. Minor basilar right lower lobe subsegmental atelectasis. Pleura and pericardium: No effusions. Chest wall and axilla: No mass or adenopathy. Upper abdomen: Unremarkable. Bones: Thoracic scoliosis. Thoracic osteophytosis consistent with DISH. IMPRESSION: No CT evidence of an acute appearing large, central or segmental pulmonary embolus. Few thin intraluminal webs in right lower lobe pulmonary arteries consistent with residua of chronic pulmonary emboli. A small curvilinear luminal hypodensity in a lingular subsegmental pulmonary artery could represent residua of a chronic PE as well. Pulmonary mosaic attenuation could represent compressive changes and foci of air trapping, however correlate clinically to exclude pneumonitis or mild pulmonary edema. Dictated by Chon Redman MD @ 03/19/2019 11:16:34 PM Please note that all CT scans at this facility use dose modulation, iterative reconstruction, and/or weight-based dosing when appropriate to reduce radiation dose to as low as reasonably achievable. Dictated by: Chon Redman MD @ 03/19/2019 23:16:38 (Electronically Signed)
[2019-03-19] MEDS ORDERED: Nitroglycerin 2% Oint 1 GM UD Packet TOP ONE (23:36)
[2019-03-20] MEDS ORDERED: Latanoprost 0.005% Ophth Soln 2.5 ML Bottle EYEBOTH PRN (03:01)
[2019-03-20] MEDS ORDERED: LORCASERIN HCL 10 MG PO SCH (09:00)
[2019-03-20] MEDS ORDERED: Apixaban 2.5 MG Tab PO SCH (09:00)
[2019-03-20] MEDS ORDERED: Acetaminophen 500 MG Tab PO SCH (09:00)
[2019-03-20] MEDS ORDERED: Magnesium Sulfate/Water 2 GM in Premix Bag 1 BAG IV ONE (10:49)
[2019-03-20] MEDS ORDERED: Acetaminophen/Codeine 300-30 MG Tab PO ONE (10:49)
[2019-03-20 12:01] VITALS: BP 107/60; PULSE 78
--- NOTE | 2019-03-20 12:41 | PCM.HP.2 ---
H&P History of Present Illness - General Date of Service: 03/20/19 Admit Problem/Dx: Admission Diagnosis/Problem Admission Diagnosis/Problem Atypical chest pain Source of Information: Patient History Limitations: Reports: No Limitations - History of Present Illness Initial Comments - Free Text/Narative: This 68 year old female with pmh of PE/DVT on Eliquis, restrictive lung disease and "stiff heart disease" presented to the ED overnight with complaints of chest pressure and heaviness. She reports she was working out as she does nearly everyday. yesterday she did increase weight to bilateral arms for her work out "to push herself". She reports this as chest pressure at the lower sternum area that radiated to the right anterior chest associated with some lightheadedness and a slight headache. She laid down and said that the discomfort seemed to get worse and she rated as a 10/10. She says currently now it is a 7/10 but she did not take anything to help it. She describes it as bricks sitting on her chest and it is localized in the lower mid sternum and radiates slightly to the right. She has no abdominal pain no nausea or vomiting and no upper respiratory symptoms other than the shortness of breath which is now better. Nitro in the ED did not help at all, she was then given Tylenol #3 which helped calm the pain. She has had episodes of this in the past , but has not had anything in 6-10 months. She reports having cardiac work up as outpatient in [place] including angiogram. She next sees her providers there the end of April. She denies cough, or fevers at home. No edema to lower extremities. In the ED labwork WNL. Troponin negative EKG SR with no signs of acute ischemia.CT angio of the chest was obtained due to chest pressure, this revealed no evidence of acute PE, right lower lobe pulmonary arteries show residula of chronic emboli, focal air trapping noted bilaterally, with possible atelectasis to R lower base. She was admitted for chest pain rule out ACS. Chest Pain Score (Numeric/FACES): 7 - Related Data Allergies/Adverse Reactions: Allergies Allergy/AdvReac Type Severity Reaction Status Date / Time adhesive Allergy Intermediate Blisters Verified 03/20/19 02:48 brimonidine tartrate Allergy Intermediate Burning Verified 03/20/19 02:48 [From Alphagan P] clindamycin Allergy Intermediate Swelling Verified 03/20/19 02:48 duloxetine HCl Allergy Intermediate Shortness Verified 03/20/19 02:48 [From Cymbalta] of Breath chlorhexidine Allergy Mild Other Verified 03/20/19 02:48 methylprednisolone Allergy Mild Swelling Verified 03/20/19 02:48 tramadol HCl [From Ultracet] Allergy Mild Rash Verified 03/20/19 02:48 valdecoxib [From Bextra] Allergy Mild Rash Verified 03/20/19 02:48 acetaminophen [From Roxicet] Allergy Rash Verified 03/20/19 02:48 bupropion HCl Allergy Hallucinati Verified 03/20/19 02:48 [From Wellbutrin] ons canagliflozin [From Invokana] Allergy Rash Verified 03/20/19 02:48 cefadroxil hydrate Allergy Rash Verified 03/20/19 02:48 [From Ultracef] ciprofloxacin Allergy Rash Verified 03/20/19 02:48 foot deodorant combination Allergy Burning Verified 03/20/19 02:48 no.1 [From Desenex] gold sodium thiomalate Allergy Swelling Verified 03/20/19 02:48 lorazepam Allergy Hallucinati Verified 03/20/19 02:48 ons metformin Allergy Rash Verified 03/20/19 02:48 miconazole nitrate Allergy Burning Verified 03/20/19 02:48 [From Desenex] oxycodone [Oxycodone] Allergy Rash Verified 03/20/19 02:48 oxycodone HCl [From Roxicet] Allergy Rash Verified 03/20/19 02:48 pineapple Allergy Swollen Verified 03/20/19 02:48 Tongue povidone-iodine Allergy Rash Verified 03/20/19 02:48 [From Betadine] propranolol [From Inderal LA] Allergy Airway Verified 03/20/19 02:48 Tightness raspberry Allergy Swollen Verified 03/20/19 02:48 Tongue rivaroxaban [From Xarelto] Allergy Other Verified 03/20/19 02:48 sitagliptin [From Januvia] Allergy Liver Verified 03/20/19 02:48 Problems soap [From Betadine] Allergy Rash Verified 03/20/19 02:48 Sulfa (Sulfonamide Allergy Edema Verified 03/20/19 02:48 Antibiotics) undecylenic acid Allergy Burning Verified 03/20/19 02:48 [From Desenex] zinc undecylenate Allergy Burning Verified 03/20/19 02:48 [From Desenex] latex AdvReac Severe Anaphylactic Verified 03/20/19 02:48 Shock clonazepam [From Klonopin] AdvReac Intermediate Hallucinati Verified 03/20/19 02 :48 ons pregabalin [From Lyrica] AdvReac Intermediate Hallucinati Verified 03/20/19 02: 48 ons exenatide [From Bydureon] AdvReac Mild Other Verified 03/20/19 02:48 gentamicin sulfate AdvReac Mild intolerance Verified 03/20/19 02:48 [From Garamycin] glimepiride AdvReac Mild Other Verified 03/20/19 02:48 liraglutide [From Victoza] AdvReac Mild Other Verified 03/20/19 02:48 2-Hydroxypropyl Methacrylate Allergy Burning Uncoded 03/20/19 02:48 bio-mesh screen Allergy Other Uncoded 03/20/19 02:48 chlorhexidine gluconate swab Allergy Rash Uncoded 03/20/19 02:48 stick Clavilon Swab Stick Allergy Rash Uncoded 03/20/19 02:48 ethyleneglycol Dimethacrylate Allergy Swelling Uncoded 03/20/19 02:48 evergreen pollen Allergy Anaphylactic Uncoded 03/20/19 02:48 Shock geomycin Allergy Swelling Uncoded 03/20/19 02:48 Glue/Paste Allergy Blisters Uncoded 03/20/19 02:48 java crown Allergy Other Uncoded 03/20/19 02:48 [place] Allergy Rash Uncoded 03/20/19 02:48 potassium Dicyanoaurate Allergy Edema Uncoded 03/20/19 02:48 surgical foam Allergy Blisters Uncoded 03/20/19 02:48 Home Medications: Home Meds Apixaban [Eliquis] 2.5 mg PO BID 12/10/17 [History] EPINEPHrine [Epipen 2-Stas] 1 dose IM ASDIRECTED PRN 12/10/17 [History] Gabapentin [Neurontin] 100 mg PO BEDTIME 12/10/17 [History] Latanoprost [Xalatan 0.005% Ophth Soln] 1 drop EYERT DAILY 12/10/17 [History] Multivitamin [One Daily] 1 tab PO BID 12/10/17 [History] atorvaSTATin [Lipitor] 40 mg PO BEDTIME 12/10/17 [History] Acetaminophen [Tylenol Extra Strength] 500 mg PO BID 03/20/19 [History] Latanoprost 1 drop EYEBOTH BID PRN 03/20/19 [History] Lorcaserin HCl [Belviq] 10 mg PO BID 03/20/19 [History] Past Medical History HEENT History: Reports: None, Other (See Below) 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 pneumonia. Restrictive Lung Disease Gastrointestinal History: Reports: Bowel Obstruction, Chronic Diarrhea, GERD, Other (See Below) Other Gastrointestinal History: explore laparatomy 2007. abdominal hernia Genitourinary History: Reports: Other (See Below) Other Genitourinary History: bladder/kidney/urine infections [employer] History: Reports: , Other (See Below) Other OB/BYN History: ovarian cyst. molar Musculoskeletal History: Reports: Arthritis, Back Pain, Chronic, Osteoarthritis Other Musculoskeletal History: Mild Osteopenia Neurological History: Reports: None Psychiatric History: Reports: Anxiety, Depression Endocrine/Metabolic History: Reports: Diabetes, Type II, Other (See Below) Other Endocrine/Metabolic History: DM resolved per pateint in July 2018 Hematologic History: Reports: Other (See Below) Other Hematologic History: clotting disorder Immunologic History: Reports: None Oncologic (Cancer) History: Reports: Basal Cell Carcinoma Dermatologic History: Reports: Eczema, Psoriasis, Other (See Below) Other Dermatologic History: dermatitis. oral lichen planus - Infectious Disease History Infectious Disease History: Reports: Chicken Pox, Measles, Mumps - Past Surgical History Head Surgeries/Procedures: Reports: None HEENT Surgical History: Reports: Other (See Below) Cardiovascular Surgical History: Reports: None Respiratory Surgical History: Reports: None GI Surgical History: Reports: None, Colonoscopy Female Surgical History: Reports: Hysterectomy Endocrine Surgical History: Reports: None Neurological Surgical History: Reports: None Musculoskeletal Surgical History: Reports: Arthroscopic Procedure, Knee Replacement Oncologic Surgical History: Reports: Biopsy of Breast Dermatological Surgical History: Reports: Skin Biopsy Social & Family History - Family History Family Medical History: Noncontributory - Tobacco Use Smoking Status *Q: Never Smoker Second Hand Smoke Exposure: No - Caffeine Use Caffeine Use: Reports: Coffee - Recreational Drug Use Recreational Drug Use: No H&P Review of Systems - Review of Systems: Review Of Systems: See Below General: Reports: No Symptoms. Denies: Fever, Chills, Malaise, Weakness HEENT: Reports: No Symptoms. Denies: Contact Lenses, Headaches, Sinus Congestion Pulmonary: Denies: Shortness of Breath, Cough Cardiovascular: Reports: Chest Pain (Noted in L shoulder, increase with movement. Tylenol #3 helps with pain). Denies: Edema Gastrointestinal: Reports: No Symptoms. Denies: Abdominal Pain Genitourinary: Reports: No Symptoms. Denies: Dysuria, Frequency, Burning Skin: Reports: No Symptoms Psychiatric: Reports: No Symptoms Neurological: Reports: No Symptoms Hematologic/Lymphatic: Reports: No Symptoms Immunologic: Reports: No Symptoms Exam - Exam Exam: See Below - Vital Signs Vital Signs: Last Vital Signs Temp 98.9 F 03/20/19 11:00 Pulse 78 03/20/19 11:00 Resp 18 03/20/19 11:00 BP 107/60 03/20/19 11:00 Pulse Ox 97 03/20/19 11:00 Weight: 106.776 kg - Exam General: Alert, Oriented, Cooperative HEENT: Conjunctiva Clear, Mucosa Moist & [place], Pupils Equal Lungs: Clear to Auscultation, Normal Respiratory Effort Cardiovascular: Regular Rate, Regular Rhythm GI/Abdominal Exam: Normal Bowel Sounds, Soft, Non-Tender Extremities: Normal Inspection, Normal Range of Motion, Non-Tender, No Pedal Edema Neuro Extensive - Mental Status: Alert Neuro Extensive - Motor, Sensory, Reflexes: CN II-XII Intact Psychiatric: Anxious - Patient Data Lab Results Last 24 hrs: Laboratory Results - last 24 hr 03/19/19 03/19/19 03/20/19 Range/Units 20:42 20:42 03:03 WBC 9.69 (4.0-11.0) K/uL RBC 4.64 (4.30-5.90) M/uL Hgb 14.2 (12.0-16.0) g/dL Hct 43.4 (36.0-46.0) % MCV 93.5 (80.0-98.0) fL MCH 30.6 (27.0-32.0) pg MCHC 32.7 (31.0-37.0) g/dL RDW Std Deviation 47.9 (28.0-62.0) fl RDW Coeff of Tisha 14 (11.0-15.0) % Plt Count 119 L (150-400) K/uL MPV 11.20 (7.40-12.00) fL Neut % (Auto) 58.9 (48.0-80.0) % Lymph % (Auto) 32.0 (16.0-40.0) % [place] % (Auto) 8.0 (0.0-15.0) % Eos % (Auto) 0.9 (0.0-7.0) % Baso % (Auto) 0.2 (0.0-1.5) % Neut # (Auto) 5.7 (1.4-5.7) K/uL Lymph # (Auto) 3.1 H (0.6-2.4) K/uL [place] # (Auto) 0.8 (0.0-0.8) K/uL Eos # (Auto) 0.1 (0.0-0.7) K/uL Baso # (Auto) 0.0 (0.0-0.1) K/uL Nucleated RBC % 0.0 /100WBC Nucleated RBCs # 0 K/uL Sodium 142 (136-145) mmol/L Potassium 3.8 (3.5-5.1) mmol/L Chloride 103 (98-107) mmol/L Carbon Dioxide 26.6 (21.0-32.0) mmol/L BUN 15 (7.0-18.0) mg/dL Creatinine 0.8 (0.6-1.0) mg/dL Est Cr Clr Drug Dosing 64.76 mL/min Estimated GFR (MDRD) > 60.0 ml/min Glucose 110 H (74-106) mg/dL Calcium 9.3 (8.5-10.1) mg/dL Magnesium (1.8-2.4) mg/dL Total Bilirubin 0.8 (0.2-1.0) mg/dL AST 20 (15-37) IU/L ALT 32 (14-63) IU/L Alkaline Phosphatase 72 (46-116) U/L Troponin I < 0.050 < 0.050 (0.000-0.056) ng/mL Total Protein 7.8 (6.4-8.2) g/dL Albumin 4.2 (3.4-5.0) g/dL Globulin 3.6 (2.6-4.0) g/dL Albumin/Globulin Ratio 1.2 (0.9-1.6) 03/20/19 03/20/19 Range/Units 09:28 09:28 WBC (4.0-11.0) K/uL RBC (4.30-5.90) M/uL Hgb (12.0-16.0) g/dL Hct (36.0-46.0) % MCV (80.0-98.0) fL MCH (27.0-32.0) pg MCHC (31.0-37.0) g/dL RDW Std Deviation (28.0-62.0) fl RDW Coeff of Tisha (11.0-15.0) % Plt Count (150-400) K/uL MPV (7.40-12.00) fL Neut % (Auto) (48.0-80.0) % Lymph % (Auto) (16.0-40.0) % [place] % (Auto) (0.0-15.0) % Eos % (Auto) (0.0-7.0) % Baso % (Auto) (0.0-1.5) % Neut # (Auto) (1.4-5.7) K/uL Lymph # (Auto) (0.6-2.4) K/uL [place] # (Auto) (0.0-0.8) K/uL Eos # (Auto) (0.0-0.7) K/uL Baso # (Auto) (0.0-0.1) K/uL Nucleated RBC % /100WBC Nucleated RBCs # K/uL Sodium (136-145) mmol/L Potassium (3.5-5.1) mmol/L Chloride (98-107) mmol/L Carbon Dioxide (21.0-32.0) mmol/L BUN (7.0-18.0) mg/dL Creatinine (0.6-1.0) mg/dL Est Cr Clr Drug Dosing mL/min Estimated GFR (MDRD) ml/min Glucose (74-106) mg/dL Calcium (8.5-10.1) mg/dL Magnesium 1.7 L (1.8-2.4) mg/dL Total Bilirubin (0.2-1.0) mg/dL AST (15-37) IU/L ALT (14-63) IU/L Alkaline Phosphatase (46-116) U/L Troponin I < 0.050 (0.000-0.056) ng/mL Total Protein (6.4-8.2) g/dL Albumin (3.4-5.0) g/dL Globulin (2.6-4.0) g/dL Albumin/Globulin Ratio (0.9-1.6) Result Diagrams: 03/19/19 20:42 03/19/19 20:42 Sepsis Event Note - Evaluation Sepsis Screening Result: No Definite Risk - Focused Exam Vital Signs: Vital Signs Temp Pulse Resp BP Pulse Ox Pulse Ox 03/20/19 11:00 98.9 F 78 18 107/60 97 03/20/19 07:00 97.2 F 72 16 114/63 93 L 03/20/19 03:40 97.5 F 69 15 112/58 L 93 L 03/20/19 02:37 96 03/20/19 02:00 97.9 F 16 126/63 95 03/20/19 00:58 97.4 F 70 16 135/77 96 Date Exam was Performed: 03/20/19 Time Exam was Performed: 12:33 - Problem List (1) Atypical chest pain SNOMED Code(s): 193967552 ICD Code: R07.89 - OTHER CHEST PAIN Status: Acute Current Visit: Yes (2) History of venous thromboembolism SNOMED Code(s): 228616083 ICD Code: Z86.718 - PERSONAL HISTORY OF OTHER VENOUS THROMBOSIS AND EMBOLISM Status: Chronic Current Visit: Yes (3) Restrictive lung disease SNOMED Code(s): 83331797 ICD Code: J98.4 - OTHER DISORDERS OF LUNG Status: Chronic Current Visit: Yes (4) Stiff heart syndrome SNOMED Code(s): 344243372 ICD Code: I51.89 - OTHER ILL-DEFINED HEART DISEASES Status: Chronic Current Visit: Yes Problem List Initiated/Reviewed/Updated: Yes Orders Last 24hrs: Active Orders 24 hr Category Date Time Status Patient Status [ADT] Stat ADT 03/19/19 23:36 Active Antiembolic Devices [RC] PER UNIT ROUTINE Care 03/20/19 02:38 Active Cardiac Monitoring [RC] . DIRECTED Care 03/19/19 20:24 Active Communication Order [RC] PRN Care 03/20/19 11:03 Active Oxygen Therapy [RC] PRN Care 03/20/19 02:37 Active Ready for Discharge [RC] PER UNIT ROUTINE Care 03/20/19 12:30 Active Telemetry Monitoring [Cardiac Monitoring] [RC] Q8H Care 03/20/19 01:12 Active Up ad Gillian [RC] ASDIRECTED Care 03/20/19 02:37 Active VTE/DVT Education [RC] PER UNIT ROUTINE Care 03/20/19 02:37 Active Vital Signs [RC] Q4H Care 03/20/19 02:37 Active Regular Diet [DIET] Diet 03/20/19 Breakfast Active Acetaminophen [Tylenol Extra Strength] Med 03/20/19 09:00 Active 500 mg PO BID Apixaban [Eliquis] Med 03/20/19 09:00 Active 2.5 mg PO BID Gabapentin [Neurontin] Med 03/20/19 21:00 Active 100 mg PO BEDTIME Latanoprost [Xalatan 0.005% Ophth Soln] Med 03/20/19 03:01 Active 0 ml EYEBOTH BID PRN Patient's Own Medication [Ptom] Med 03/20/19 09:00 Active 1 each PO BID Sodium Chloride 0.9% [Saline Flush] Med 03/19/19 20:24 Active 10 ml FLUSH ASDIRECTED PRN Sodium Chloride 0.9% [Saline Flush] Med 03/19/19 20:24 Active 2.5 ml FLUSH ASDIRECTED PRN atorvaSTATin [Lipitor] Med 03/20/19 21:00 Active 40 mg PO BEDTIME Saline Lock Insert [OM.PC] Stat Oth 03/19/19 20:24 Ordered Sequential Compression Device [OM.PC] Per Unit Routine Oth 03/20/19 02:37 Ordered Resuscitation Status Routine Resus Stat 03/20/19 02:37 Ordered Medication Orders Acetaminophen (Tylenol Extra Strength) 500 mg PO BID [facility] Last Admin: 03/20/19 09:04 Dose: 500 mg Apixaban (Eliquis) 2.5 mg PO BID [facility] Last Admin: 02/04/20 09:02 Dose: 2.5 mg Atorvastatin Calcium (Lipitor) 40 mg PO BEDTIME [place] Gabapentin (Neurontin) 100 mg PO BEDTIME [place] Latanoprost (Xalatan 0.005% Ophth Soln) 0 ml EYEBOTH BID PRN PRN Reason: Dry Eyes Lorcaserin Hcl [ (Belviq] 10 Mg) 1 each PO BID [place] Last Admin: 03/20/19 09:01 Dose: Not Given Sodium Chloride (Saline Flush) 10 ml FLUSH ASDIRECTED PRN PRN Reason: Keep Vein Open Sodium Chloride (Saline Flush) 2.5 ml FLUSH ASDIRECTED PRN PRN Reason: Keep Vein Open Assessment/Plan Comment:: This 68 year old female admitted with atypical chest pain, relieved by Tylenol # 3 1. Chest pain: Monitored overnight. Troponins remain negative. chest pain remains, but improved. requesting Tylenol #3. EKG remains stable Discharge Plan: Perla was admitted and monitored overnight for chest pain. Troponins were trended and remains negative. EKG SR with no st elevation, PVCs noted, supplemented Magnesium IV today. She will be discharged home today. Continue taking home medications as prescribed. ACS ruled out. She has close follow up with PCP. She is to limit exercise the next few days. Pain may be due to recent increase in work regimen and weights. Tylenol for pain at home and rest. May need to consider stress test as outpatient, will discuss with PCP at follow up. Return to ED or clinic if concerns should arise. - Mortality Measure Prognosis:: Good
[2019-03-20] MEDS ORDERED: Gabapentin 100 MG Cap PO SCH (21:00)
[2019-03-20] MEDS ORDERED: atorvaSTATin 40 MG Tab PO SCH (21:00)
== END 2019-03-20 14:05 | disposition home or self-care (01) ==
LOC: MW.ED 20:15 → MW.MS 23:36
PROVIDERS: ADMIT Internal Medicine; ATTEND Internal Medicine
DX: R07.89 Other chest pain (principal); I48.91 Unspecified atrial fibrillation; J98.4 Other disorders of lung; I51.89 Other ill-defined heart diseases; E11.9 Type 2 diabetes mellitus without complications; K21.9 Gastro-esophageal reflux disease without esophagitis; M19.90 Unspecified osteoarthritis, unspecified site; G89.29 Other chronic pain; M54.9 Dorsalgia, unspecified; L40.9 Psoriasis, unspecified; L30.9 Dermatitis, unspecified; Z88.1 Allergy status to other antibiotic agents; Z88.6 Allergy status to analgesic agent; Z88.8 Allergy status to other drugs, medicaments and biological substances; Z91.09 Other allergy status, other than to drugs and biological substances; Z91.018 Allergy to other foods; Z88.2 Allergy status to sulfonamides; Z91.040 Latex allergy status; Z91.048 Other nonmedicinal substance allergy status; Z79.01 Long term (current) use of anticoagulants; Z79.899 Other long term (current) drug therapy; Z86.718 Personal history of other venous thrombosis and embolism
CPT/HCPCS: 36415; 71045; 71275; 80053; 83735; 84484; 85025; 93005; A9270; J3475; Q9967; 96374; 99285-25; G0378

== ENCOUNTER 2020-05-05 02:39 | Emergency (ER) | payer OTHER ==
[2020-05-05] MEDS ORDERED: Sodium Chloride 0.9% 10 ML Syringe FLUSH PRN (03:05)
[2020-05-05] MEDS ORDERED: Sodium Chloride 0.9% 2.5 ML Syringe FLUSH PRN (03:05)
--- NOTE | 2020-05-05 03:14 | EDM.PDOC ---
ED HPI GENERAL MEDICAL PROBLEM - General Chief Complaint: Trauma Stated Complaint: PASSED OUT Time Seen by Provider: 05/05/20 03:15 - History of Present Illness INITIAL COMMENTS - FREE TEXT/NARRATIVE: History of present illness: [] Patient is the historian. She says she had chest pain. She got up. She went to the bathroom. She felt dizzy. She fell down. She does not remember much after that until EMS was there. Apparently she had a syncopal episode or loss of consciousness when she hit her head. The patient unfortunately is also on Eliquis. This makes her trauma alert. She is not complaining specifically of neck pain but says her chest is still tight. 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 She also has valvular heart disease. Also reports that for the last week she has had abdominal pain and diarrhea with her diverticulitis. Her doctor started her on Levaquin and Flagyl. Her lips began to peel 3 days ago and she stopped the Levaquin because she remembered that she is allergic to it. She has mild abdominal pain and loose stools. was a witness. He heard the funk when he got to the bathroom she was awake. Review of systems: As per history of present illness and below otherwise all systems reviewed and negative. Past medical history: As per history of present illness and as reviewed below otherwise noncontributory. Surgical history: As per history of present illness and as reviewed below otherwise noncontributory. Social history: No reported history of drug or alcohol abuse. Family history: As per history of present illness and as reviewed below otherwise noncontributory. Physical exam: Constitutional - well developed, well-nourished and in no acute distress HEENT -c-collar applied on arrival. She did not have any tenderness in her neck normocephalic, no evidence of trauma - external nose and mouth normal - no mass in neck and no JVD - mucosae moist EYES - full EOM, PERRL, no icterus - no evidence of inflammation, injection, or drainage Respiratory - no respiratory distress, equal bilateral expansion, lungs clear to auscultation and no abnormal lung sounds Cardiovascular - Regular Rhythm with S1 and S2 appreciated and no murmur, gallop or rub. GI - abdomen soft without distension or organomegaly - normal bowel sounds - no guard or rebound Musculoskeletal no gross deformity of long bones or joints - no tenderness, swelling or edema Neurologic -my customary neurologic exam is normal alert and oriented times four - CN II-XII grossly intact - motor sensory and coordination symmetrically normal Psychiatric - appropriate mood and affect with normal thought content Hematologic - No petechiae or purpura - mucosa appropriate color and sclera not pale - normal nail bed color and refill Integument - no rash or evidence of trauma - normal turgor Diagnostics: [] Therapeutics: [] Impression: [] Plan: [] Definitive disposition and diagnosis as appropriate pending reevaluation and review of above. lower back pain Pain Score (Numeric/FACES): 9 - Related Data Allergies Allergy/AdvReac Type Severity Reaction Status Date / Time adhesive Allergy Intermediate Blisters Verified 05/05/20 03:24 brimonidine tartrate Allergy Intermediate Burning Verified 05/05/20 03:24 [From Alphagan P] clindamycin Allergy Intermediate Swelling Verified 05/05/20 03:24 duloxetine HCl Allergy Intermediate Shortness Verified 05/05/20 03:24 [From Cymbalta] of Breath chlorhexidine Allergy Mild Other Verified 05/05/20 03:24 methylprednisolone Allergy Mild Swelling Verified 05/05/20 03:24 tramadol HCl [From Ultracet] Allergy Mild Rash Verified 05/05/20 03:24 valdecoxib [From Bextra] Allergy Mild Rash Verified 05/05/20 03:24 acetaminophen [From Roxicet] Allergy Rash Verified 05/05/20 03:24 bupropion HCl Allergy Hallucinati Verified 05/05/20 03:24 [From Wellbutrin] ons canagliflozin [From Invokana] Allergy Rash Verified 05/05/20 03:24 cefadroxil hydrate Allergy Rash Verified 05/05/20 03:24 [From Ultracef] ciprofloxacin Allergy Rash Verified 05/05/20 03:24 foot deodorant combination Allergy Burning Verified 05/05/20 03:24 no.1 [From Desenex] gold sodium thiomalate Allergy Swelling Verified 05/05/20 03:24 lorazepam Allergy Hallucinati Verified 05/05/20 03:24 ons metformin Allergy Rash Verified 05/05/20 03:24 miconazole nitrate Allergy Burning Verified 05/05/20 03:24 [From Desenex] oxycodone [Oxycodone] Allergy Rash Verified 05/05/20 03:24 oxycodone HCl [From Roxicet] Allergy Rash Verified 05/05/20 03:24 pineapple Allergy Swollen Verified 05/05/20 03:24 Tongue povidone-iodine Allergy Rash Verified 05/05/20 03:24 [From Betadine] propranolol [From Inderal LA] Allergy Airway Verified 05/05/20 03:24 Tightness raspberry Allergy Swollen Verified 05/05/20 03:24 Tongue rivaroxaban [From Xarelto] Allergy Other Verified 05/05/20 03:24 sitagliptin [From Januvia] Allergy Liver Verified 05/05/20 03:24 Problems soap [From Betadine] Allergy Rash Verified 05/05/20 03:24 Sulfa (Sulfonamide Allergy Edema Verified 05/05/20 03:24 Antibiotics) undecylenic acid Allergy Burning Verified 05/05/20 03:24 [From Desenex] zinc undecylenate Allergy Burning Verified 05/05/20 03:24 [From Desenex] latex AdvReac Severe Anaphylactic Verified 05/05/20 03:24 Shock clonazepam [From Klonopin] AdvReac Intermediate Hallucinati Verified 05/05/20 03:24 ons pregabalin [From Lyrica] AdvReac Intermediate Hallucinati Verified 05/05/20 03:24 ons exenatide [From Bydureon] AdvReac Mild Other Verified 05/05/20 03:24 gentamicin sulfate AdvReac Mild intolerance Verified 05/05/20 03:24 [From Garamycin] glimepiride AdvReac Mild Other Verified 05/05/20 03:24 liraglutide [From Victoza] AdvReac Mild Other Verified 05/05/20 03:24 2-Hydroxypropyl Methacrylate Allergy Burning Uncoded 05/05/20 03:24 bio-mesh screen Allergy Other Uncoded 05/05/20 03:24 chlorhexidine gluconate swab Allergy Rash Uncoded 05/05/20 03:24 stick Clavilon Swab Stick Allergy Rash Uncoded 05/05/20 03:24 ethyleneglycol Dimethacrylate Allergy Swelling Uncoded 05/05/20 03:24 evergreen pollen Allergy Anaphylactic Uncoded 05/05/20 03:24 Shock geomycin Allergy Swelling Uncoded 05/05/20 03:24 Glue/Paste Allergy Blisters Uncoded 05/05/20 03:24 java crown Allergy Other Uncoded 05/05/20 03:24 Muslin Allergy Rash Uncoded 05/05/20 03:24 potassium Dicyanoaurate Allergy Edema Uncoded 05/05/20 03:24 surgical foam Allergy Blisters Uncoded 05/05/20 03:24 Home Meds: Home Meds Apixaban [Eliquis] 2.5 mg PO BID 12/10/17 [History] EPINEPHrine [Epipen 2-Stas] 1 dose IM ASDIRECTED PRN 12/10/17 [History] Gabapentin [Neurontin] 100 mg PO BEDTIME 12/10/17 [History] Latanoprost [Xalatan 0.005% Ophth Soln] 1 drop EYERT DAILY 12/10/17 [History] atorvaSTATin [Lipitor] 40 mg PO BEDTIME 12/10/17 [History] Amoxicillin/Clavulanate K [Augmentin 400-57 MG/5 ML] 400 mg PO TID #150 ml 05/05/20 [Rx] Colesevelam [Welchol] 625 mg PO DAILY 05/05/20 [History] Ketoconazole [Nizoral 2% Crm] 1 applic TOP DAILY PRN 05/05/20 [History] Non-Formulary Medication [NF Drug] 15 ml PO TID 05/05/20 [History] Pantoprazole [ProTONIX] 40 mg PO DAILY 05/05/20 [History] Past Medical History HEENT History: Reports: None, Other (See Below) 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 pneumonia. Restrictive Lung Disease Gastrointestinal History: Reports: Bowel Obstruction, Chronic Diarrhea, GERD, Other (See Below) Other Gastrointestinal History: explore laparatomy 2007. abdominal hernia Genitourinary History: Reports: Other (See Below) Other Genitourinary History: bladder/kidney/urine infections CUSTOMER SUCCESS DIRECTOR History: Reports: , Other (See Below) Other CUSTOMER SUCCESS DIRECTOR History: ovarian cyst. molar Musculoskeletal History: Reports: Arthritis, Back Pain, Chronic, Osteoarthritis Other Musculoskeletal History: Mild Osteopenia Neurological History: Reports: None Psychiatric History: Reports: Anxiety, Depression Endocrine/Metabolic History: Reports: Diabetes, Type II, Other (See Below) Other Endocrine/Metabolic History: DM resolved per pateint in July 2018 Hematologic History: Reports: Other (See Below) Other Hematologic History: clotting disorder Immunologic History: Reports: None Oncologic (Cancer) History: Reports: Basal Cell Carcinoma Dermatologic History: Reports: Eczema, Psoriasis, Other (See Below) Other Dermatologic History: dermatitis. oral lichen planus - Infectious Disease History Infectious Disease History: Reports: Chicken Pox, Measles, Mumps - Past Surgical History Head Surgeries/Procedures: Reports: None HEENT Surgical History: Reports: Other (See Below) Cardiovascular Surgical History: Reports: None Respiratory Surgical History: Reports: None GI Surgical History: Reports: None, Colonoscopy Female Surgical History: Reports: Hysterectomy Endocrine Surgical History: Reports: None Neurological Surgical History: Reports: None Musculoskeletal Surgical History: Reports: Arthroscopic Procedure, Knee Replacement Oncologic Surgical History: Reports: Biopsy of Breast Dermatological Surgical History: Reports: Skin Biopsy Social & Family History - Family History Family Medical History: No Pertinent Family History - Caffeine Use Caffeine Use: Reports: Coffee ED ROS GENERAL - Review of Systems Review Of Systems: Comprehensive ROS is negative, except as noted in HPI. ED EXAM, GENERAL - Physical Exam Exam: See Below Free Text/Narrative:: Physical exam is in the #1 Interpretation EKG Interpretation Comments: EKG done at 2:43 AM shows a sinus rhythm with a heart rate of 75 and an axis of 4 and a IN interval of 182. QRS ST and T are within normal limits. Impression normal EKG Course - Vital Signs Text/Narrative:: 4:01 AM the patient is awake and alert. She is back from CT. Her chest still hurts. See orders 05:00 patient's chest is all better after morphine but her head still hurts. Last Recorded V/S: Last Vital Signs Temp 36.7 C 05/05/20 02:48 Pulse 127 H 05/05/20 02:48 Resp 18 05/05/20 02:48 BP 131/54 L 05/05/20 02:48 Pulse Ox 97 05/05/20 02:48 - Orders/Labs/Meds Orders: Active Orders 24 hr Category Date Time Status Cardiac Monitoring [RC] . DIRECTED Care 05/05/20 03:05 Active EKG Documentation Completion [RC] AM Care 05/05/20 03:05 Active TROPONIN I [CHEM] Routine Lab 05/05/20 05:52 Ordered Nitroglycerin [Nitrostat] Med 05/05/20 05:09 Active 0.4 mg SL Q5M PRN Sodium Chloride 0.9% [Saline Flush] Med 05/05/20 03:05 Active 10 ml FLUSH ASDIRECTED PRN Sodium Chloride 0.9% [Saline Flush] Med 05/05/20 03:05 Active 2.5 ml FLUSH ASDIRECTED PRN Saline Lock Insert [OM.PC] Stat Oth 05/05/20 03:05 Ordered Medication Orders Nitroglycerin (Nitroglycerin 0.4 Mg Tab.Sl) 0.4 mg SL Q5M PRN PRN Reason: Chest Pain Sodium Chloride (Sodium Chloride 0.9% 10 Ml Syringe) 10 ml FLUSH ASDIRECTED PRN PRN Reason: Keep Vein Open Last Admin: 05/05/20 03:49 Dose: 10 ml Documented by: ETHEL Sodium Chloride (Sodium Chloride 0.9% 2.5 Ml Syringe) 2.5 ml FLUSH ASDIRECTED PRN PRN Reason: Keep Vein Open Last Admin: 05/05/20 03:49 Dose: 2.5 ml Documented by: ETHEL Labs: Laboratory Tests 05/05/20 05/05/20 Range/Units 02:52 02:52 WBC 7.77 (4.0-11.0) K/uL RBC 4.51 (4.30-5.90) M/uL Hgb 13.9 (12.0-16.0) g/dL Hct 42.2 (36.0-46.0) % MCV 93.6 (80.0-98.0) fL MCH 30.8 (27.0-32.0) pg MCHC 32.9 (31.0-37.0) g/dL RDW Std Deviation 45.9 (28.0-62.0) fl RDW Coeff of Tisha 14 (11.0-15.0) % Plt Count 122 L (150-400) K/uL MPV 10.90 (7.40-12.00) fL Neut % (Auto) 67.4 (48.0-80.0) % Lymph % (Auto) 24.7 (16.0-40.0) % [place] % (Auto) 6.9 (0.0-15.0) % Eos % (Auto) 0.9 (0.0-7.0) % Baso % (Auto) 0.1 (0.0-1.5) % Neut # (Auto) 5.2 (1.4-5.7) K/uL Lymph # (Auto) 1.9 (0.6-2.4) K/uL [place] # (Auto) 0.5 (0.0-0.8) K/uL Eos # (Auto) 0.1 (0.0-0.7) K/uL Baso # (Auto) 0.0 (0.0-0.1) K/uL Nucleated RBC % 0.0 /100WBC Nucleated RBCs # 0 K/uL Sodium 139 (136-145) mmol/L Potassium 4.1 (3.5-5.1) mmol/L Chloride 103 (98-107) mmol/L Carbon Dioxide 24.5 (21.0-32.0) mmol/L BUN 13 (7.0-18.0) mg/dL Creatinine 0.8 (0.6-1.0) mg/dL Est Cr Clr Drug Dosing 63.88 mL/min Estimated GFR (MDRD) > 60.0 ml/min Glucose 190 H (74-106) mg/dL Calcium 8.6 (8.5-10.1) mg/dL Total Bilirubin 0.7 (0.2-1.0) mg/dL AST 21 (15-37) IU/L ALT 26 (14-63) IU/L Alkaline Phosphatase 98 (46-116) U/L Troponin I < 0.050 (0.000-0.056) ng/mL Total Protein 6.9 (6.4-8.2) g/dL Albumin 3.8 (3.4-5.0) g/dL Globulin 3.1 (2.6-4.0) g/dL Albumin/Globulin Ratio 1.2 (0.9-1.6) Meds: Medications Generic Name Dose Route Start Last Admin Trade Name Freq PRN Reason Stop Dose Admin Nitroglycerin 0.4 mg 05/05/20 05:09 Nitroglycerin 0.4 Mg Tab.Sl SL Q5M PRN Chest Pain Sodium Chloride 10 ml 05/05/20 03:05 05/05/20 03:49 Sodium Chloride 0.9% 10 Ml Syringe FLUSH 10 ml ASDIRECTED PRN Administration Keep Vein Open Sodium Chloride 2.5 ml 05/05/20 03:05 05/05/20 03:49 Sodium Chloride 0.9% 2.5 Ml Syringe FLUSH 2.5 ml ASDIRECTED PRN Administration Keep Vein Open Discontinued Medications Generic Name Dose Route Start Last Admin Trade Name Prince PRN Reason Stop Dose Admin Morphine Sulfate 4 mg 05/05/20 04:00 05/05/20 04:33 Morphine 4 Mg/Ml Syringe IVPUSH 05/05/20 04:01 Not Given ONETIME ONE Morphine Sulfate 4 mg 05/05/20 04:32 05/05/20 04:40 Morphine 2 Mg/Ml Syringe IVPUSH 05/05/20 04:33 4 mg ONETIME ONE Administration Ondansetron HCl 4 mg 05/05/20 03:45 05/05/20 03:48 Ondansetron 4 Mg/2 Ml Sdv IVPUSH 05/05/20 03:46 4 mg ONETIME ONE Administration Ondansetron HCl Confirm 05/05/20 03:44 05/05/20 03:49 Ondansetron 4 Mg/2 Ml Sdv Administered 05/05/20 03:45 Not Given Dose 4 mg .ROUTE .STK-MED ONE Ondansetron HCl 4 mg 05/05/20 03:59 05/05/20 04:06 Ondansetron 4 Mg/2 Ml Sdv IVPUSH 05/05/20 04:00 Not Given ONETIME ONE Departure - Departure Time of Disposition: 05:37 Disposition: Home, Self-Care 01 Condition: Good Clinical Impression: Concussion with brief (less than one hour) loss of consciousness, Fall, Chest pain, Diverticulitis - Discharge Information Instructions: Head Injury, Adult, [id number], Diverticulitis, [id number] Referrals: Олег Gilbert MD [Primary Care Provider] - Forms: ED Department Discharge Additional Instructions: [facility] - Primary Care [address] [place] [id number] [place] [address] The following information is given to patients seen in the emergency department who are being discharged to home. This information is to outline your options for follow-up care. We provide all patients seen in our emergency department with a follow-up referral. The need for follow-up, as well as the timing and circumstances, are variable depending upon the specifics of your emergency department visit. If you don't have a primary care physician on staff, we will provide you with a referral. We always advise you to contact your personal physician following an emergency department visit to inform them of the circumstance of the visit and for follow-up with them and/or the need for any referrals to a consulting specialist. The emergency department will also refer you to a specialist when appropriate. This referral assures that you have the opportunity for follow-up care with a specialist. All of these measure are taken in an effort to provide you with optimal care, which includes your follow-up. Under all circumstances we always encourage you to contact your private physician who remains a resource for coordinating your care. When calling for follow-up care, please make the office aware that this follow-up is from your recent emergency room visit. If for any reason you are refused follow-up, please contact the [facility] Emergency Department at and asked to speak to the emergency department charge nurse. Sepsis Event Note (ED) - Focused Exam Vital Signs: Vital Signs Temp Pulse Resp BP Pulse Ox 05/05/20 02:48 36.7 C 127 H 18 131/54 L 97 - My Orders Last 24 Hours: My Active Orders 05/05/20 03:05 Cardiac Monitoring [RC] . DIRECTED EKG Documentation Completion [RC] AM Sodium Chloride 0.9% [Saline Flush] 10 ml FLUSH ASDIRECTED PRN Sodium Chloride 0.9% [Saline Flush] 2.5 ml FLUSH ASDIRECTED PRN Saline Lock Insert [OM.PC] Stat 05/05/20 05:09 Nitroglycerin [Nitrostat] 0.4 mg SL Q5M PRN 05/05/20 05:52 TROPONIN I [CHEM] Routine - Assessment/Plan Last 24 Hours: My Active Orders 05/05/20 03:05 Cardiac Monitoring [RC] . DIRECTED EKG Documentation Completion [RC] AM Sodium Chloride 0.9% [Saline Flush] 10 ml FLUSH ASDIRECTED PRN Sodium Chloride 0.9% [Saline Flush] 2.5 ml FLUSH ASDIRECTED PRN Saline Lock Insert [OM.PC] Stat 05/05/20 05:09 Nitroglycerin [Nitrostat] 0.4 mg SL Q5M PRN 05/05/20 05:52 TROPONIN I [CHEM] Routine
[2020-05-05] MEDS ORDERED: Ondansetron 4 MG/2 ML SDV ONE (03:44)
[2020-05-05 03:45] LABS: BLOOD UREA NITROGEN,BUN 13 mg/dL (7.0-18.0); CARBON DIOXIDE,CO2 24.5 mmol/L (21.0-32.0); CHLORIDE,CL 103 mmol/L (98-107); GLUCOSE RANDOM 190 mg/dL (74-106); POTASSIUM,K 4.1 mmol/L (3.5-5.1); SODIUM,NA 139 mmol/L (136-145)
[2020-05-05] MEDS ORDERED: Ondansetron 4 MG/2 ML SDV IVPUSH ONE ×2 (03:45→03:59)
[2020-05-05] MEDS ORDERED: Morphine 4 MG/ML Syringe IVPUSH ONE (04:00)
[2020-05-05] MEDS ORDERED: Morphine 2 MG/ML SYRINGE IVPUSH ONE (04:32)
--- NOTE | 2020-05-05 04:53 | CR ---
Indication: Chest pain Technique: Chest 1 view Comparison: 03/19/2019 Findings/Impression: Cardiovascular and mediastinum: Mild cardiomegaly, increased, which could be partially related to differences in technique. Mild prominence of central pulmonary vasculature. Correlate for early pulmonary congestion. Lungs and pleural space: Subtle medial retrocardiac opacity could represent atelectasis or an evolving infectious infiltrate. Correlate clinically and follow-up. No pleural effusions. No pneumothorax seen. Bones and soft tissues: Spinal scoliosis again seen. Dictated by Chon Redman MD @ May 05 2020 4:49AM Signed by Dr. Chon Redman @ May 05 2020 4:52AM
--- NOTE | 2020-05-05 05:02 | CT ---
INDICATION: Head injury. Anticoagulated TECHNIQUE: CT head without contrast. COMPARISON: 12/20/2016 FINDINGS: The ventricles and sulci are stable. There is no mass effect or midline shift. White matter hypodensities are suggestive of chronic small vessel ischemic changes. There is no loss of daigle-white differentiation. There is no evidence of an acute intracranial hemorrhage. No acute calvarial fracture is seen. Osteopenia is noted. Sclerotic foci the frontal bone, right of midline, and right occipital condyle, were seen on the prior. Foci of minimal paranasal sinus mucosal thickening are noted. The mastoid air cells are clear. The visualized orbits are within normal limits. IMPRESSION: No evidence of an acute intracranial hemorrhage, mass effect or loss of daigle-white differentiation. Chronic small-vessel ischemic changes again seen. Please note that all CT scans at this facility use dose modulation, iterative reconstruction, and/or weight-based dosing when appropriate to reduce radiation dose to as low as reasonably achievable. Dictated by Chon Redman MD @ May 05 2020 4:49AM Signed by Dr. Chon Redman @ May 05 2020 5:01AM
--- NOTE | 2020-05-05 05:08 | CT ---
INDICATION: Fall. Pain TECHNIQUE: CT cervical spine without contrast. COMPARISON: None available FINDINGS: Osteopenia is noted. The cervical spine alignment is within normal limits. The craniocervical and atlantoaxial alignments are near anatomical. There is no evidence of an acute cervical spine fracture. There is no significant precervical soft tissue swelling. There are degenerative changes at C5-6 with a disc osteophyte complex, encroaching on the neural foramina. A small sclerotic focus in the right occipital condyle is nonspecific. IMPRESSION: No evidence of an acute cervical spine fracture. Please note that all CT scans at this facility use dose modulation, iterative reconstruction, and/or weight-based dosing when appropriate to reduce radiation dose to as low as reasonably achievable. Dictated by Chon Redman MD @ May 05 2020 4:49AM Signed by Dr. Chon Redman @ May 05 2020 5:06AM
[2020-05-05] MEDS ORDERED: Nitroglycerin 0.4 MG Tab.SL SL PRN (05:09)
--- NOTE | 2020-05-05 05:12 | CT ---
INDICATION: Fall. Pain TECHNIQUE: CT lumbar spine without contrast. COMPARISON: None available FINDINGS: There is lumbar levoscoliosis. Mild anterolisthesis of L4 on L5 and associated lateral subluxation are noted. There is no evidence of an acute lumbar spine fracture. There are multilevel degenerative spondylotic changes as well as degenerative facet disease changes. No paravertebral soft tissue mass is seen. A bowel suture is noted in pelvis. IMPRESSION: No evidence of an acute lumbar spine fracture. Lumbar scoliosis and multilevel degenerative changes. Please note that all CT scans at this facility use dose modulation, iterative reconstruction, and/or weight-based dosing when appropriate to reduce radiation dose to as low as reasonably achievable. Dictated by Chon Redman MD @ May 05 2020 4:49AM Signed by Dr. Chon Redman @ May 05 2020 5:11AM
[2020-05-05 07:15] VITALS: BP 115/71; PULSE 86
== END 2020-05-05 07:10 | disposition home or self-care (01) ==
LOC: MW.ED 02:39
DX: S06.0X9A Concussion with loss of consciousness of unspecified duration, initial encounter (principal); K57.92 Diverticulitis of intestine, part unspecified, without perforation or abscess without bleeding; R07.9 Chest pain, unspecified; M54.2 Cervicalgia; M54.5 Low back pain; I48.91 Unspecified atrial fibrillation; K21.9 Gastro-esophageal reflux disease without esophagitis; E11.9 Type 2 diabetes mellitus without complications; Z86.711 Personal history of pulmonary embolism; Z91.048 Other nonmedicinal substance allergy status; Z88.8 Allergy status to other drugs, medicaments and biological substances; Z88.1 Allergy status to other antibiotic agents; Z88.5 Allergy status to narcotic agent; Z91.018 Allergy to other foods; Z88.2 Allergy status to sulfonamides; Z79.01 Long term (current) use of anticoagulants; Z79.899 Other long term (current) drug therapy; W18.30XA Fall on same level, unspecified, initial encounter
CPT/HCPCS: 36415; 70450; 71045; 72125; 72131; 80053; 84484; 85025; 93005; 96374; 96375; 99285; J2270; J2405; 93010; 99284

== ENCOUNTER 2020-11-14 06:02 | Emergency (ER) | payer MEDICARE, OTHER ==
[2020-11-14] MEDS ORDERED: predniSONE 10 MG Tab PO ONE (06:25)
[2020-11-14] MEDS ORDERED: Azithromycin 250 MG Tab PO ONE (06:28)
[2020-11-14 07:16] LABS: CORONAVIRUS COVID-19 NAA POSITIVE (NEGATIVE); INFLUENZA A NAA NEGATIVE (NEGATIVE); INFLUENZA B NAA NEGATIVE (NEGATIVE)
--- NOTE | 2020-11-14 07:23 | CR ---
Indication: Cough Comparison: Single view chest May 05, 2020 Technique: PA and Lateral views chest Findings: There is hyperinflation and chronic interstitial change. There is no focal consolidation, effusion, or pneumothorax. The cardiac silhouette is mildly prominent with a tortuous thoracic aorta. The bony thorax is grossly intact. Impression: Hyperinflation and chronic interstitial changes without evidence of dense consolidation. Dictated by Eric Gurrola MD @ 11/14/2020 7:23:18 AM (Electronically Signed)
--- NOTE | 2020-11-14 08:01 | EDM.PDOC ---
ED HPI GENERAL MEDICAL PROBLEM - General Chief Complaint: Respiratory Problem Stated Complaint: HARD TO BREATHE, EXPOSURE TO COVID Time Seen by Provider: 11/14/20 08:01 - History of Present Illness INITIAL COMMENTS - FREE TEXT/NARRATIVE: HISTORY AND PHYSICAL: History of present illness: This is a 69-year-old female who got a history significant for interstitial lung disease who presents ER today secondary to shortness of breath, cough, wheezing, pain with inspiration as well as concerns for coronavirus infection. Patient has had both coronavirus vaccinations. Patient denies any recent fevers, shakes, chills. Patient has any nausea, vomiting, diarrhea,. Patient reports that she saw her primary care physician sometime last week and was started on amoxicillin for similar symptoms. Patient reports in the past when she had similar symptoms she is either required admission or required antibiotics and steroids. Patient reports that albuterol and nebulizer treatments do not work for her. Patient denies any other complaints at this time. Review of systems: As per history of present illness and below otherwise all systems reviewed and negative. Past medical history: As per history of present illness and as reviewed below otherwise noncontributory. Surgical history: As per history of present illness and as reviewed below otherwise noncontributory. Social history: No reported history of drug abuse. Family history: As per history of present illness and as reviewed below otherwise noncontributory. Physical exam: This patient was seen and evaluated during the 2019 SARS-CoV-2 novel coronavirus pandemic period. Community viral transmission is ongoing at time of this encounter and the emergency department is operating under pandemic response procedures. Constitutional: Patient is oriented to person, place, and time. Appears well- developed and well-nourished. No distress. HEENT: Moist mucous membranes Head: Normocephalic and atraumatic Eyes: Right eye exhibits no discharge. Left eye exhibits no discharge. No scleral icterus Neck: Normal range of motion. No tracheal deviation present. Cardiovascular: Normal rate and regular rhythm. Pulmonary: Effort normal, no respiratory distress. Abdominal: No distention Musculoskeletal: Normal range of motion Neurologic: Alert and oriented to person, place and time. Skin: [place], warm and dry. Psychiatric: Normal mood and affect. Behavior is normal. Judgment and thought content normal. Nursing note and vital signs have been reviewed Lungs are clear without any rales or rhonchi. Patient has occasional end expiratory wheezing. Heart with regular rate and rhythm. Diagnostics: Chest Xray: Normal cardiac silhouette No infiltrates or effusions identified. Hyperinflation with chronic interstitial lung disease No PTX No evidence of acute bony fracture. As interpreted by ER MD: Ashanti Noble: Prednisone 50 mg p.o. Assessment and plan: [69-year-old female who presents ER today secondary to URI symptoms. Patient kaminski s had Covid exposure at home. Patient lives with her and another individual who had tested positive approximate 1 week ago. Patient's Covid test did come back positive today. I discussed with the patient the need for isolation/quarantine. Patient is amenable for Regeneron therapy so we will go ahead and initiate that for her. Patient had been given Zithromax in the ED but at this point I do not believe that it would be beneficial for her so I have discussed this with her and she agrees with no further doses. I believe that the prednisone might be of benefit for her given her interstitial lung disease and her slight wheezing and to the fact that she does not respond to albuterol in the past. Patient's pulse ox is 98% on room air. At this point, I do not believe that the patient qualifies for inpatient level of care given her excellent oxygenation. Reassessment at the time of disposition demonstrates that the patient is in no acute distress. The patient has remained stable throughout the entire ED visit and is without objective evidence for acute process requiring urgent intervention or hospitalization. The patient is stable for discharge, counseling is provided as documented above, discussed symptomatic treatment and specific conditions for return. I have spoken with the patient/caregiver and discussed todays findings, in addition to providing specific details for the plan of care. Questions are answered and there is agreement with the plan. Definitive disposition and diagnosis as appropriate pending reevaluation and review of above. - Related Data Allergies Allergy/AdvReac Type Severity Reaction Status Date / Time adhesive Allergy Intermediate Blisters Verified 05/05/20 03:24 brimonidine tartrate Allergy Intermediate Burning Verified 05/05/20 03:24 [From Alphagan P] clindamycin Allergy Intermediate Swelling Verified 05/05/20 03:24 duloxetine HCl Allergy Intermediate Shortness Verified 05/05/20 03:24 [From Cymbalta] of Breath chlorhexidine Allergy Mild Other Verified 05/05/20 03:24 methylprednisolone Allergy Mild Swelling Verified 05/05/20 03:24 tramadol HCl [From Ultracet] Allergy Mild Rash Verified 05/05/20 03:24 valdecoxib [From Bextra] Allergy Mild Rash Verified 05/05/20 03:24 acetaminophen [From Roxicet] Allergy Rash Verified 05/05/20 03:24 bupropion HCl Allergy Hallucinati Verified 05/05/20 03:24 [From Wellbutrin] ons canagliflozin [From Invokana] Allergy Rash Verified 05/05/20 03:24 cefadroxil hydrate Allergy Rash Verified 05/05/20 03:24 [From Ultracef] ciprofloxacin Allergy Rash Verified 05/05/20 03:24 foot deodorant combination Allergy Burning Verified 05/05/20 03:24 no.1 [From Desenex] gold sodium thiomalate Allergy Swelling Verified 05/05/20 03:24 lorazepam Allergy Hallucinati Verified 05/05/20 03:24 ons metformin Allergy Rash Verified 05/05/20 03:24 miconazole nitrate Allergy Burning Verified 05/05/20 03:24 [From Desenex] oxycodone [Oxycodone] Allergy Rash Verified 05/05/20 03:24 oxycodone HCl [From Roxicet] Allergy Rash Verified 05/05/20 03:24 pineapple Allergy Swollen Verified 05/05/20 03:24 Tongue povidone-iodine Allergy Rash Verified 05/05/20 03:24 [From Betadine] propranolol [From Inderal LA] Allergy Airway Verified 05/05/20 03:24 Tightness raspberry Allergy Swollen Verified 05/05/20 03:24 Tongue rivaroxaban [From Xarelto] Allergy Other Verified 05/05/20 03:24 sitagliptin [From Januvia] Allergy Liver Verified 05/05/20 03:24 Problems soap [From Betadine] Allergy Rash Verified 05/05/20 03:24 Sulfa (Sulfonamide Allergy Edema Verified 05/05/20 03:24 Antibiotics) undecylenic acid Allergy Burning Verified 05/05/20 03:24 [From Desenex] zinc undecylenate Allergy Burning Verified 05/05/20 03:24 [From Desenex] latex AdvReac Severe Anaphylactic Verified 05/05/20 03:24 Shock clonazepam [From Klonopin] AdvReac Intermediate Hallucinati Verified 05/05/20 03:24 ons pregabalin [From Lyrica] AdvReac Intermediate Hallucinati Verified 05/05/20 03:24 ons exenatide [From Bydureon] AdvReac Mild Other Verified 05/05/20 03:24 gentamicin sulfate AdvReac Mild intolerance Verified 05/05/20 03:24 [From Garamycin] glimepiride AdvReac Mild Other Verified 05/05/20 03:24 liraglutide [From Victoza] AdvReac Mild Other Verified 05/05/20 03:24 2-Hydroxypropyl Methacrylate Allergy Burning Uncoded 05/05/20 03:24 bio-mesh screen Allergy Other Uncoded 05/05/20 03:24 chlorhexidine gluconate swab Allergy Rash Uncoded 05/05/20 03:24 stick Clavilon Swab Stick Allergy Rash Uncoded 05/05/20 03:24 ethyleneglycol Dimethacrylate Allergy Swelling Uncoded 05/05/20 03:24 evergreen pollen Allergy Anaphylactic Uncoded 05/05/20 03:24 Shock geomycin Allergy Swelling Uncoded 05/05/20 03:24 Glue/Paste Allergy Blisters Uncoded 05/05/20 03:24 java crown Allergy Other Uncoded 05/05/20 03:24 [place] Allergy Rash Uncoded 05/05/20 03:24 potassium Dicyanoaurate Allergy Edema Uncoded 05/05/20 03:24 surgical foam Allergy Blisters Uncoded 05/05/20 03:24 Home Meds: Home Meds Apixaban [Eliquis] 5 mg PO BID 12/10/17 [History] EPINEPHrine [Epipen 2-Stas] 1 dose IM ASDIRECTED PRN 12/10/17 [History] Gabapentin [Neurontin] 100 mg PO BEDTIME 12/10/17 [History] Latanoprost [Xalatan 0.005% Ophth Soln] 1 drop EYERT DAILY 12/10/17 [History] atorvaSTATin [Lipitor] 40 mg PO BEDTIME 12/10/17 [History] Colesevelam [Welchol] 625 mg PO DAILY 05/05/20 [History] Past Medical History HEENT History: Reports: None, Other (See Below) Other 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 pneumonia. Restrictive Lung Disease Gastrointestinal History: Reports: Bowel Obstruction, Chronic Diarrhea, GERD, Other (See Below) Other Gastrointestinal History: explore laparatomy 2007. abdominal hernia Genitourinary History: Reports: Other (See Below) Other Genitourinary History: bladder/kidney/urine infections [employer]OCK[employer] History: Reports: , Other (See Below) Other SHE[employer]OCK[employer]ITCH History: ovarian cyst. molar Musculoskeletal History: Reports: Arthritis, Back Pain, Chronic, Osteoarthritis Other Musculoskeletal History: Mild Osteopenia Neurological History: Reports: None Psychiatric History: Reports: Anxiety, Depression Endocrine/Metabolic History: Reports: Diabetes, Type II, Other (See Below) Other Endocrine/Metabolic History: DM resolved per pateint in July 2018 Hematologic History: Reports: Other (See Below) Other Hematologic History: clotting disorder, auto immune disorder Immunologic History: Reports: None Oncologic (Cancer) History: Reports: Basal Cell Carcinoma Dermatologic History: Reports: Eczema, Psoriasis, Other (See Below) Other Dermatologic History: dermatitis. oral lichen planus - Infectious Disease History Infectious Disease History: Reports: Chicken Pox, Measles, Mumps - Past Surgical History Head Surgeries/Procedures: Reports: None HEENT Surgical History: Reports: Other (See Below) Other HEENT Surgeries/Procedures: sinus and nasal surgery Cardiovascular Surgical History: Reports: None Respiratory Surgical History: Reports: None GI Surgical History: Reports: None, Colonoscopy Female Surgical History: Reports: Hysterectomy Other Female Surgeries/Procedures: total hysterectomy Endocrine Surgical History: Reports: None Neurological Surgical History: Reports: None Musculoskeletal Surgical History: Reports: Arthroscopic Procedure, Knee Replacement Other Musculoskeletal Surgeries/Procedures:: total left knee replacment Oncologic Surgical History: Reports: Biopsy of Breast Dermatological Surgical History: Reports: Skin Biopsy Social & Family History - Family History Family Medical History: No Pertinent Family History - Tobacco Use Tobacco Use Status *Q: Never Tobacco User - Caffeine Use Caffeine Use: Reports: None - Recreational Drug Use Recreational Drug Use: No ED ROS GENERAL - Review of Systems Review Of Systems: See Below ED EXAM, GENERAL - Physical Exam Exam: See Below Course - Vital Signs Last Recorded V/S: Last Vital Signs Temp 99.5 F 11/14/20 07:13 Pulse 90 11/14/20 07:13 Resp 16 11/14/20 07:13 BP 124/72 11/14/20 07:13 Pulse Ox 95 11/14/20 07:13 - Orders/Labs/Meds Orders: Active Orders 24 hr Category Date Time Status COVID-19/FLU A+B [[facility]] Stat Lab 11/14/20 06:33 Results Labs: Laboratory Tests 11/14/20 Range/Units 06:33 Influenza Type A RNA NEGATIVE (NEGATIVE) Influenza Type B RNA NEGATIVE (NEGATIVE) Meds: Medications Discontinued Medications Generic Name Dose Route Start Last Admin Trade Name Prince PRN Reason Stop Dose Admin Azithromycin 500 mg 11/14/20 06:28 11/14/20 06:34 Azithromycin 250 Mg Tab PO 11/14/20 06:29 500 mg Q24H ONE Administration Prednisone 40 mg 11/14/20 06:25 11/14/20 06:34 Prednisone 10 Mg Tab PO 11/14/20 06:26 40 mg ONETIME ONE Administration Departure - Departure Time of Disposition: 08:11 Disposition: Home, Self-Care 01 Condition: Good Clinical Impression: COVID-19 virus infection - Discharge Information Instructions: COVID-19: What to Do If You Are Sick- [facility] (04/30/2020), COVID-19: Quarantine vs. Isolation - [facility] (01/31/2020), 10 Things You Can Do to Manage Your COVID-19 Symptoms at Home - [facility] (08/29/2020) Referrals: Олег Gilbert MD [Primary Care Provider] - Forms: ED Department Discharge Additional Instructions: You were seen and evaluated in the ER today secondary to signs and symptoms that was concerning for coronavirus. Your coronavirus test is positive today in the emergency department. You will get continued on your prednisone daily for 4 more days. As we discussed, we will have someone from the infusion center call you for Regeneron therapy. This is a monoclonal antibody therapy that is currently under emergency use authorization. This medication has been shown to decrease the need for patients who are at high risk of lung inflammation from coronavirus to require admission to the hospital. Please get plenty rest, drink plenty of fluids. Someone from the infusion center will contact you and give you further instructions regarding your Regeneron infusion. 1. Your COVID-19 screening is positive. That means you do have the coronavirus and you are considered contagious. Your vital signs and oxygen saturation are well enough that you were able to monitor your symptoms at home. Continue to monitor for trouble breathing, new confusion or inability to arouse, bluish lips or face or any of the other symptoms we discussed -if this occurs please return to the emergency room. 2. Please self quarantine over the next 10 days. Inform any persons that you have been in contact with since you started becoming symptomatic that you have tested positive; they should be made aware and take the appropriate steps as needed. 3. You can take NyQuil during the evening to help get a restful night sleep. May alternate Tylenol and ibuprofen as needed for pain and fever management. 4. The [facility] department will be calling you and following up with you. The [place] [employer] Hotline phone number , They are open Tuesday - Tuesday 7am - 7pm. Follow up with your primary care provider for re-evaluation and re-testing after the 10 day quarantine and discuss when you should be seen. The following information is given to patients seen in the emergency department who are being discharged to home. This information is to outline your options for follow-up care. We provide all patients seen in our emergency department with a follow-up referral. The need for follow-up, as well as the timing and circumstances, are variable depending upon the specifics of your emergency department visit. If you don't have a primary care physician on staff, we will provide you with a referral. We always advise you to contact your personal physician following an emergency department visit to inform them of the circumstance of the visit and for follow-up with them and/or the need for any referrals to a consulting specialist. The emergency department will also refer you to a specialist when appropriate. This referral assures that you have the opportunity for follow-up care with a specialist. All of these measure are taken in an effort to provide you with optimal care, which includes your follow-up. Under all circumstances we always encourage you to contact your private physician who remains a resource for coordinating your care. When calling for follow-up care, please make the office aware that this follow-up is from your recent emergency room visit. If for any reason you are refused follow-up, please contact the [facility] Emergency Department at and asked to speak to the emergency department charge nurse. [facility] [address] [place] [address] [facility] [address] [place] [address] Sepsis Event Note (ED) - Focused Exam Vital Signs: Vital Signs Temp Pulse Resp BP Pulse Ox 11/14/20 07:13 99.5 F 90 16 124/72 95 11/14/20 06:13 98.2 F 79 19 131/66 97 - My Orders Last 24 Hours: My Active Orders 11/14/20 06:33 COVID-19/FLU A+B [[facility]] Stat - Assessment/Plan Last 24 Hours: My Active Orders 11/14/20 06:33 COVID-19/FLU A+B [[facility]] Stat
[2020-11-14 09:03] VITALS: BP 132/75; PULSE 92
== END 2020-11-14 09:03 | disposition home or self-care (01) ==
LOC: MW.ED 06:02
DX: U07.1 COVID-19 (principal); I48.91 Unspecified atrial fibrillation; E11.9 Type 2 diabetes mellitus without complications; Z79.01 Long term (current) use of anticoagulants; Z79.899 Other long term (current) drug therapy; Z86.718 Personal history of other venous thrombosis and embolism; Z91.048 Other nonmedicinal substance allergy status; Z88.1 Allergy status to other antibiotic agents; Z88.8 Allergy status to other drugs, medicaments and biological substances; Z91.018 Allergy to other foods; Z88.5 Allergy status to narcotic agent; Z88.2 Allergy status to sulfonamides; Z91.040 Latex allergy status; Z91.09 Other allergy status, other than to drugs and biological substances
CPT/HCPCS: 0240U; 71046; 99285; A9270; 99284

== ENCOUNTER 2020-11-20 14:50 | Emergency (ER) | payer MEDICARE, OTHER ==
[2020-11-20] MEDS ORDERED: Sodium Chloride 0.9% 1,000 ML IV ONE (15:32)
--- NOTE | 2020-11-20 15:45 | PCM.EKG ---
#1 Interpretation EKG Interpretation Comments: EKG done 11/20/2020 at 3:31 PM shows a sinus rhythm with a heart rate of 81 and a ME interval of 136. QT duration is 433 and axis is 70. There is a late transition R wave. Compared to 05/05/2020 no change impression no acute injury
--- NOTE | 2020-11-20 16:01 | EDM.PDOC ---
ED HPI GENERAL MEDICAL PROBLEM - General Chief Complaint: Respiratory Problem Stated Complaint: POSITIVE FOR COVID Time Seen by Provider: 11/20/20 15:03 Source of Information: Reports: Patient History Limitations: Reports: No Limitations - History of Present Illness INITIAL COMMENTS - FREE TEXT/NARRATIVE: HISTORY AND PHYSICAL: History of present illness: Patient is a 69-year-old female, with a known COVID-19 diagnosis since 11/14/2020, history of interstitial lung disease, who presents emergency room today with concern of worsening shortness of breath and chest pain x3 days. Patient states that she was diagnosed with COVID-19 on 11/14/2020 and received the Regeneron monoclonal antibody infusion that same day. Patient states that she was feeling much improved up until Tuesday when she began having worsening shortness of breath and chest tightness. Patient states that she has a hard time distinguishing from her interstitial lung disease from COVID-19 infection. Patient states she came to the emergency room today as she feels that it is "burning in the back of her lungs ". Patient states that she was vaccinated for COVID-19 with the Pfizer vaccine and received both vaccinations. Patient denies any other symptoms or concerns. Patient denies fever, chills, chest pain, shortness of breath, or cough. Denies headache, neck stiff ness, change in vision, syncope, or near syncope. Denies nausea, vomiting, abdominal pain, diarrhea, constipation, or dysuria. Has not noted any blood in urine or stool. Patient has been eating and drinking appropriately. Review of systems: As per history of present illness and below otherwise all systems reviewed and negative. Past medical history: As per history of present illness and as reviewed below otherwise noncontributory. Surgical history: As per history of present illness and as reviewed below otherwise noncontributory. Social history: See social history for further information Family history: As per history of present illness and as reviewed below otherwise noncontributory. Physical exam: General: Patient is alert, oriented, and in no acute distress. Patient sitting comfortably on exam table. Vitals stable and reviewed by me. HEENT: Atraumatic, normocephalic, pupils equal and reactive bilaterally, negative for conjunctival pallor or scleral icterus, mucous membranes moist, TMs normal bilaterally, throat clear, neck supple, nontender, trachea midline. No drooling or trismus noted. No meningeal signs. No hot potato voice noted. Lungs: Clear to auscultation, breath sounds equal bilaterally, chest nontender. Heart: S1S2, regular rate and rhythm without overt murmur Abdomen: Soft, nondistended, nontender. Negative for masses or hepatosplenomegaly. Negative for costovertebral tenderness. Pelvis: Stable nontender. Genitourinary: Deferred. Rectal: Deferred. Skin: Intact, warm, dry. No lesions or rashes noted. Extremities: Atraumatic, negative for cords or calf pain. Neurovascular unremarkable. Neuro: Awake, alert, oriented. Cranial nerves II through XII unremarkable. Cerebellum unremarkable. Motor and sensory unremarkable throughout. Exam nonfocal. Notes: Patient is a 69-year-old female, with a history of COVID-19 viral infection since 11/14/2020, and interstitial lung disease, who presents emergency room today with concern of worsening shortness of breath x3 days. Upon arrival to the ED, patient is vitally stable and well-appearing on exam. Will obtain cardiac evaluation, and CT scan given concern for possible pulmonary embolism. See Dr. Llanes's dictation for specific EKG interpretation. However, normal sinus rhythm with a rate of 81 without STEMI. CBC shows mild thrombocytopenia leukopenia 119. Otherwise mild derangements of CBC unremarkable. CMP shows elevation of glucose at 289 (patient has been on steroids), mild transaminitis with AST at 45, and ALT at 64. Otherwise mild derangements of CMP unremarkable. Troponin negative. And CT chest shows no evidence for pulmonary embolism. Minimal discoid atelectasis. Upon reevaluation of patient, she remains vitally stable and comfortable throughout stay in the ED. I did discuss further patient's interstitial lung disease and according to patient, typically she is on 2 weeks of steroids when she is in the acute exacerbation or on viral illness. Patient states that she was only given 5 days of prednisone and feels that she would benefit from the total 2 weeks. Discussed with patient that I would give her a prednisone taper and to follow-up closely with her primary care provider and lining closer. Strict return precautions thoroughly discussed with patient. Discussed importance for follow-up with her lining closer and primary care provider following COVID-19 quarantine restrictions. Voices understanding and is agreeable to plan of care. Denies any further questions or concerns at this time. When discharging patient, she does express to nursing staff that she is in the process of a divorce and does not feel safe to go home. I did go back into patient's room to discuss this with her. She states that she is in the process of a divorce and there is a lot of tension at home. She does not express any physical abuse. I did offer law enforcement to come and speak with patient and she is agreeable to this. I also did offer transfer to the [facility] crisis [facility], however, she declines at this time feeling that this is not necessary. Law enforcement and bedside feel that there is no legal concerns. Patient was offered transfer to the women's crisis intermediate, however, she feels that she is safe to return home. Diagnostics: EKG, CBC, CMP, lipase, troponin, ang CT chest Therapeutics: Normal saline Prescription: Prednisone taper Impression: COVID-19 viral infection Interstitial lung disease Plan: 1. Your vital signs and oxygen saturation are well enough that you were able to monitor your symptoms at home. Continue to monitor for trouble breathing, new confusion or inability to arouse, bluish lips or face or any of the other symptoms we discussed -if this occurs please return to the emergency room.Continue to monitor your health at home for worsening symptoms so that you can be taken care of and treated quickly if needed. 2. Please self quarantine until 10 days have passed since your symptoms began AND you are fever free (<100.4 degrees fahrenheit) for 24 hours without the use of fever-reducing medications AND symptoms are improving. You should restrict activities outside of your home, except for getting medical care. Do not go to work, school, or public areas. Avoid using public transportation, ride-sharing, or taxis. Inform any persons that you have been in contact with since you started becoming symptomatic that you have tested positive; they should be made aware and take the appropriate steps as needed. 3. Take the medications as we prescribed as discussed. 4. You may alternate Tylenol and ibuprofen as needed for pain and fever management. 5. The [facility] health department will be calling you and following up with you. The [place] COVID 19 Hotline phone number , They are open Tuesday - Tuesday 7am - 7pm. Follow up with your primary care provider for re-evaluation and re-testing after quarantine and discuss when you should be seen. 6. For more specific guidelines regarding isolation/quarantine please visit this website. https://www.[facility].[place].gov/sites/www/files/documents/Files/ELIAN/coronavirus/Factsheet_for_People_W ith_COVID-19.pdf Definitive disposition and diagnosis as appropriate pending reevaluation and review of above. Chest Pain Score (Numeric/FACES): 8 - Related Data Allergies Allergy/AdvReac Type Severity Reaction Status Date / Time adhesive Allergy Intermediate Blisters Verified 05/05/20 03:24 brimonidine tartrate Allergy Intermediate Burning Verified 05/05/20 03:24 [From Alphagan P] clindamycin Allergy Intermediate Swelling Verified 05/05/20 03:24 duloxetine HCl Allergy Intermediate Shortness Verified 05/05/20 03:24 [From Cymbalta] of Breath chlorhexidine Allergy Mild Other Verified 05/05/20 03:24 methylprednisolone Allergy Mild Swelling Verified 05/05/20 03:24 tramadol HCl [From Ultracet] Allergy Mild Rash Verified 05/05/20 03:24 valdecoxib [From Bextra] Allergy Mild Rash Verified 05/05/20 03:24 acetaminophen [From Roxicet] Allergy Rash Verified 05/05/20 03:24 bupropion HCl Allergy Hallucinati Verified 05/05/20 03:24 [From Wellbutrin] ons canagliflozin [From Invokana] Allergy Rash Verified 05/05/20 03:24 cefadroxil hydrate Allergy Rash Verified 05/05/20 03:24 [From Ultracef] ciprofloxacin Allergy Rash Verified 05/05/20 03:24 foot deodorant combination Allergy Burning Verified 05/05/20 03:24 no.1 [From Desenex] gold sodium thiomalate Allergy Swelling Verified 05/05/20 03:24 lorazepam Allergy Hallucinati Verified 05/05/20 03:24 ons metformin Allergy Rash Verified 05/05/20 03:24 miconazole nitrate Allergy Burning Verified 05/05/20 03:24 [From Desenex] oxycodone [Oxycodone] Allergy Rash Verified 05/05/20 03:24 oxycodone HCl [From Roxicet] Allergy Rash Verified 05/05/20 03:24 pineapple Allergy Swollen Verified 05/05/20 03:24 Tongue povidone-iodine Allergy Rash Verified 05/05/20 03:24 [From Betadine] propranolol [From Inderal LA] Allergy Airway Verified 05/05/20 03:24 Tightness raspberry Allergy Swollen Verified 05/05/20 03:24 Tongue rivaroxaban [From Xarelto] Allergy Other Verified 05/05/20 03:24 sitagliptin [From Januvia] Allergy Liver Verified 05/05/20 03:24 Problems soap [From Betadine] Allergy Rash Verified 05/05/20 03:24 Sulfa (Sulfonamide Allergy Edema Verified 05/05/20 03:24 Antibiotics) undecylenic acid Allergy Burning Verified 05/05/20 03:24 [From Desenex] zinc undecylenate Allergy Burning Verified 05/05/20 03:24 [From Desenex] latex AdvReac Severe Anaphylactic Verified 05/05/20 03:24 Shock clonazepam [From Klonopin] AdvReac Intermediate Hallucinati Verified 05/05/20 03:24 ons pregabalin [From Lyrica] AdvReac Intermediate Hallucinati Verified 05/05/20 03:24 ons exenatide [From Bydureon] AdvReac Mild Other Verified 05/05/20 03:24 gentamicin sulfate AdvReac Mild intolerance Verified 05/05/20 03:24 [From Garamycin] glimepiride AdvReac Mild Other Verified 05/05/20 03:24 liraglutide [From Victoza] AdvReac Mild Other Verified 05/05/20 03:24 2-Hydroxypropyl Methacrylate Allergy Burning Uncoded 05/05/20 03:24 bio-mesh screen Allergy Other Uncoded 05/05/20 03:24 chlorhexidine gluconate swab Allergy Rash Uncoded 05/05/20 03:24 stick Clavilon Swab Stick Allergy Rash Uncoded 05/05/20 03:24 ethyleneglycol Dimethacrylate Allergy Swelling Uncoded 05/05/20 03:24 evergreen pollen Allergy Anaphylactic Uncoded 05/05/20 03:24 Shock geomycin Allergy Swelling Uncoded 05/05/20 03:24 Glue/Paste Allergy Blisters Uncoded 05/05/20 03:24 java crown Allergy Other Uncoded 05/05/20 03:24 Muslin Allergy Rash Uncoded 05/05/20 03:24 potassium Dicyanoaurate Allergy Edema Uncoded 05/05/20 03:24 surgical foam Allergy Blisters Uncoded 05/05/20 03:24 Home Meds: Home Meds Apixaban [Eliquis] 5 mg PO BID 12/10/17 [History] EPINEPHrine [Epipen 2-Stas] 1 dose IM ASDIRECTED PRN 12/10/17 [History] Gabapentin [Neurontin] 100 mg PO BEDTIME 12/10/17 [History] Latanoprost [Xalatan 0.005% Ophth Soln] 1 drop EYERT DAILY 12/10/17 [History] atorvaSTATin [Lipitor] 40 mg PO BEDTIME 12/10/17 [History] Colesevelam [Welchol] 625 mg PO DAILY 05/05/20 [History] predniSONE [Prednisone] 50 mg PO DAILY #5 tablet 11/14/20 [Rx] predniSONE [Prednisone] 20 mg PO DAILY 8 Days #16 tablet 11/20/20 [Rx] Past Medical History HEENT History: Reports: None, Other (See Below) 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 pneumonia. Restrictive Lung Disease Gastrointestinal History: Reports: Bowel Obstruction, Chronic Diarrhea, GERD, Other (See Below) Other Gastrointestinal History: explore laparatomy 2007. abdominal hernia Genitourinary History: Reports: Other (See Below) Other Genitourinary History: bladder/kidney/urine infections SEBD TEACHER History: Reports: , Other (See Below) Other SEBD TEACHER History: ovarian cyst. molar Musculoskeletal History: Reports: Arthritis, Back Pain, Chronic, Osteoarthritis Other Musculoskeletal History: Mild Osteopenia Neurological History: Reports: None Psychiatric History: Reports: Anxiety, Depression Endocrine/Metabolic History: Reports: Diabetes, Type II, Other (See Below) Other Endocrine/Metabolic History: DM resolved per pateint in July 2018 Hematologic History: Reports: Other (See Below) Other Hematologic History: clotting disorder, auto immune disorder Immunologic History: Reports: None Oncologic (Cancer) History: Reports: Basal Cell Carcinoma Dermatologic History: Reports: Eczema, Psoriasis, Other (See Below) Other Dermatologic History: dermatitis. oral lichen planus - Infectious Disease History Infectious Disease History: Reports: Chicken Pox, Measles, Mumps - Past Surgical History Head Surgeries/Procedures: Reports: None HEENT Surgical History: Reports: Other (See Below) Other HEENT Surgeries/Procedures: sinus and nasal surgery Cardiovascular Surgical History: Reports: None Respiratory Surgical History: Reports: None GI Surgical History: Reports: None, Colonoscopy Female Surgical History: Reports: Hysterectomy Other Female Surgeries/Procedures: total hysterectomy Endocrine Surgical History: Reports: None Neurological Surgical History: Reports: None Musculoskeletal Surgical History: Reports: Arthroscopic Procedure, Knee Replacement Other Musculoskeletal Surgeries/Procedures:: total left knee replacment Oncologic Surgical History: Reports: Biopsy of Breast Dermatological Surgical History: Reports: Skin Biopsy Social & Family History - Family History Family Medical History: No Pertinent Family History - Tobacco Use Tobacco Use Status *Q: Never Tobacco User Second Hand Smoke Exposure: No - Caffeine Use Caffeine Use: Reports: None - Recreational Drug Use Recreational Drug Use: No ED ROS GENERAL - Review of Systems Review Of Systems: Comprehensive ROS is negative, except as noted in HPI. ED EXAM, GENERAL - Physical Exam Exam: See Below (See dictation) Course - Vital Signs Last Recorded V/S: Last Vital Signs Temp 96.8 F L 11/20/20 15:18 Pulse 76 11/20/20 19:26 Resp 16 11/20/20 19:26 BP 147/84 H 11/20/20 19:26 Pulse Ox 95 11/20/20 19:26 - Orders/Labs/Meds Labs: Laboratory Tests 11/20/20 11/20/20 Range/Units 16:12 16:12 WBC 8.48 (4.0-11.0) K/uL RBC 4.67 (4.30-5.90) M/uL Hgb 14.3 (12.0-16.0) g/dL Hct 43.3 (36.0-46.0) % MCV 92.7 (80.0-98.0) fL MCH 30.6 (27.0-32.0) pg MCHC 33.0 (31.0-37.0) g/dL RDW Std Deviation 44.6 (28.0-62.0) fl RDW Coeff of Tisha 13 (11.0-15.0) % Plt Count 119 L (150-400) K/uL MPV 10.60 (7.40-12.00) fL Neut % (Auto) 86.7 H (48.0-80.0) % Lymph % (Auto) 10.6 L (16.0-40.0) % Motley % (Auto) 2.7 (0.0-15.0) % Eos % (Auto) 0.0 (0.0-7.0) % Baso % (Auto) 0.0 (0.0-1.5) % Neut # (Auto) 7.4 H (1.4-5.7) K/uL Lymph # (Auto) 0.9 (0.6-2.4) K/uL Motley # (Auto) 0.2 (0.0-0.8) K/uL Eos # (Auto) 0.0 (0.0-0.7) K/uL Baso # (Auto) 0.0 (0.0-0.1) K/uL Nucleated RBC % 0.0 /100WBC Nucleated RBCs # 0 K/uL Sodium 141 (136-145) mmol/L Potassium 4.3 (3.5-5.1) mmol/L Chloride 103 (98-107) mmol/L Carbon Dioxide 29.4 (21.0-32.0) mmol/L BUN 13 (7.0-18.0) mg/dL Creatinine 0.9 (0.6-1.0) mg/dL Est Cr Clr Drug Dosing TNP Estimated GFR (MDRD) > 60.0 ml/min Glucose 289 H (74-106) mg/dL Calcium 8.3 L (8.5-10.1) mg/dL Total Bilirubin 0.6 (0.2-1.0) mg/dL AST 45 H (15-37) IU/L ALT 64 H (14-63) IU/L Alkaline Phosphatase 91 (46-116) U/L Troponin I < 0.050 (0.000-0.056) ng/mL Total Protein 6.8 (6.4-8.2) g/dL Albumin 3.4 (3.4-5.0) g/dL Globulin 3.4 (2.6-4.0) g/dL Albumin/Globulin Ratio 1.0 (0.9-1.6) Lipase 134 (73-393) U/L Meds: Medications Discontinued Medications Generic Name Dose Route Start Last Admin Trade Name Prince PRN Reason Stop Dose Admin Dexamethasone 6 mg 11/20/20 18:32 11/20/20 18:41 Dexamethasone 10 Mg/Ml Sdv IVPUSH 11/20/20 18:33 6 mg ONETIME ONE Administration Sodium Chloride 1,000 mls @ 999 mls/hr 11/20/20 15:32 11/20/20 16:14 Normal Saline IV 11/20/20 16:32 999 mls/hr BOLUS ONE Administration Departure - Departure Time of Disposition: 18:37 Disposition: Home, Self-Care 01 Clinical Impression: COVID-19 virus infection, Restrictive lung disease - Discharge Information Prescriptions: predniSONE [Prednisone] 20 mg PO DAILY 8 Days #16 tablet Referrals: Олег Gilbert MD [Primary Care Provider] - Forms: ED Department Discharge Additional Instructions: The following information is given to patients seen in the emergency department who are being discharged to home. This information is to outline your options for follow-up care. We provide all patients seen in our emergency department with a follow-up referral. The need for follow-up, as well as the timing and circumstances, are variable depending upon the specifics of your emergency department visit. If you don't have a primary care physician on staff, we will provide you with a referral. We always advise you to contact your personal physician following an emergency department visit to inform them of the circumstance of the visit and for follow-up with them and/or the need for any referrals to a consulting specialist. The emergency department will also refer you to a specialist when appropriate. This referral assures that you have the opportunity for follow-up care with a specialist. All of these measure are taken in an effort to provide you with optimal care, which includes your follow-up. Under all circumstances we always encourage you to contact your private physician who remains a resource for coordinating your care. When calling for follow-up care, please make the office aware that this follow-up is from your recent emergency room visit. If for any reason you are refused follow-up, please contact the [facility] at and asked to speak to the emergency department charge nurse. [facility] [address] [place] [id number] [facility] [address] [place] [address] 1. Your vital signs and oxygen saturation are well enough that you were able to monitor your symptoms at home. Continue to monitor for trouble breathing, new confusion or inability to arouse, bluish lips or face or any of the other symptoms we discussed -if this occurs please return to the emergency room.Continue to monitor your health at home for worsening symptoms so that you can be taken care of and treated quickly if needed. 2. Please self quarantine until 10 days have passed since your symptoms began AND you are fever free (<100.4 degrees fahrenheit) for 24 hours without the use of fever-reducing medications AND symptoms are improving. You should restrict activities outside of your home, except for getting medical care. Do not go to work, school, or public areas. Avoid using public transportation, ride-sharing, or taxis. Inform any persons that you have been in contact with since you started becoming symptomatic that you have tested positive; they should be made aware and take the appropriate steps as needed. 3. Take the medications as we prescribed as discussed. 4. You may alternate Tylenol and ibuprofen as needed for pain and fever management. 5. The [facility] health department will be calling you and following up with you. The [place] COVID 19 Hotline phone number , They are open Tuesday - Tuesday 7am - 7pm. Follow up with your primary care provider for re-evaluation and re-testing after quarantine and discuss when you should be seen. 6. For more specific guidelines regarding isolation/quarantine please visit this website. https://www.health.[place].gov/sites/www/files/d ocuments/Files/ELIAN/coronavirus/Factsheet_for_People_With_COVID-19.pdf Sepsis Event Note (ED) - Focused Exam Vital Signs: Vital Signs Temp Pulse Resp BP Pulse Ox 11/20/20 19:26 76 16 147/84 H 95 11/20/20 17:55 78 16 155/86 H 96 11/20/20 16:25 77 15 138/78 96 11/20/20 15:18 96.8 F L 100 15 95
[2020-11-20 17:01] LABS: BLOOD UREA NITROGEN,BUN 13 mg/dL (7.0-18.0); CARBON DIOXIDE,CO2 29.4 mmol/L (21.0-32.0); CHLORIDE,CL 103 mmol/L (98-107); GLUCOSE RANDOM 289 mg/dL (74-106); LIPASE 134 U/L (73-393); POTASSIUM,K 4.3 mmol/L (3.5-5.1); SODIUM,NA 141 mmol/L (136-145)
--- NOTE | 2020-11-20 18:17 | CT ---
INDICATION: Shortness of breath, worsening COVID. History of restrictive lung disease. TECHNIQUE: CT chest PE was acquired with 75 cc Isovue 370 intravenous contrast. COMPARISON: Chest CT 03/19/2019 FINDINGS: Heart and vasculature: Contrast opacification of the pulmonary arterial tree is adequate. No sign of pulmonary embolism. No pericardial effusion. Thoracic aorta is normal in caliber. Lungs and pleural: No pleural effusion or pneumothorax. Minimal areas of discoid atelectasis. Lymph nodes/mediastinum: Subcarinal lymph node measures 10 millimeters. Chest wall: No masses. Upper abdomen: Right renal cyst measuring 17 millimeters. Gallbladder not seen suggesting prior cholecystectomy. Bones: Degenerative disc disease thoracic spine. S shaped thoracolumbar scoliosis. IMPRESSION: 1. No evidence of pulmonary embolus. 2. Minimal discoid atelectasis. Please note that all CT scans at this facility use dose modulation, iterative reconstruction, and/or weight-based dosing when appropriate to reduce radiation dose to as low as reasonably achievable. Dictated by Eduard Sanchez MD @ 11/20/2020 6:15:52 PM (Electronically Signed)
[2020-11-20] MEDS ORDERED: Dexamethasone 10 MG/ML SDV IVPUSH ONE (18:32)
[2020-11-20 19:27] VITALS: BP 147/84; PULSE 76
== END 2020-11-20 19:40 | disposition home or self-care (01) ==
LOC: MW.ED 14:50
DX: U07.1 COVID-19 (principal); J84.9 Interstitial pulmonary disease, unspecified; I48.91 Unspecified atrial fibrillation; Z86.718 Personal history of other venous thrombosis and embolism; Z88.1 Allergy status to other antibiotic agents; Z91.048 Other nonmedicinal substance allergy status; Z88.5 Allergy status to narcotic agent; Z88.8 Allergy status to other drugs, medicaments and biological substances; Z88.2 Allergy status to sulfonamides; Z91.040 Latex allergy status; Z79.01 Long term (current) use of anticoagulants; Z79.899 Other long term (current) drug therapy
CPT/HCPCS: 36415; 71275; 80053; 83690; 84484; 85025; 93005; 96374; 99285; J1100; J7030